=== PATIENT | female | born 1955 | race Caucasian/White ===

== ENCOUNTER 2020-03-11 09:33 | Outpatient (REF) | payer OTHER, SELFPAY | END 2020-03-11 09:34 | disposition home or self-care (01) | LOC: HO.HAP 09:33 | PROVIDERS: Visit Provider Internal Medicine | DX: Z46.1 Encounter for fitting and adjustment of hearing aid (principal) | CPT/HCPCS: 92700; V5011; V5020; V5160; V5261 ==

== ENCOUNTER 2020-03-25 14:54 | Outpatient (REF) | payer OTHER, SELFPAY | END 2020-03-25 14:55 | disposition home or self-care (01) | LOC: HO.HAP 14:54 | PROVIDERS: PCP Internal Medicine; Referring Provider Internal Medicine; Visit Provider Internal Medicine | DX: Z13.89 Encounter for screening for other disorder (principal) | CPT/HCPCS: 92700 ==

== ENCOUNTER 2020-06-29 15:48 | Outpatient (REF) | payer OTHER, SELFPAY ==
--- NOTE | ~2020-06-29 | XR_ITS ---
EXAMINATION: XR CHEST CLINICAL INFORMATION: Cough COMPARISON: None TECHNIQUE: 2 views of the chest were obtained. FINDINGS: The cardiac and mediastinal contours are normal. The lungs are well inflated. The lungs are clear. There is no pleural effusion or pneumothorax. Bony structures are unremarkable. XR/XR chest 2V IMPRESSION: Well-inflated lungs. No evidence for acute disease in the chest.
== END 2020-06-29 15:49 | disposition home or self-care (01) ==
LOC: HO.XRAY 15:48
PROVIDERS: PCP Internal Medicine; Visit Provider Internal Medicine Medical Oncology
DX: J41.0 Simple chronic bronchitis (principal); F17.200 Nicotine dependence, unspecified, uncomplicated
CPT/HCPCS: 71046

== ENCOUNTER 2020-07-30 11:09 | Outpatient (REF) | payer OTHER, SELFPAY ==
--- NOTE | ~2020-07-30 | XR_ITS ---
EXAMINATION: XR LUMBOSACRAL SPINE CLINICAL INFORMATION: Unspecified injury lower back. Pain COMPARISON: MR pelvis 08/12/2019 TECHNIQUE: Three views of the lumbosacral spine. FINDINGS: There is normal lumbar segmentation with 5 nonrib-bearing lumbar vertebrae of normal height and normal lumbar lordosis. There is no lumbar vertebral compression or fracture or disc narrowing. No destructive process. The SI joints and visualized sacrum are unremarkable. XR/XR lumbar spine 2-3V IMPRESSION: Unremarkable examination.
== END 2020-07-30 11:10 | disposition home or self-care (01) ==
LOC: HO.HMGCX 11:09
PROVIDERS: PCP Internal Medicine; Visit Provider Nurse Practitioner Family
DX: S39.92XA Unspecified injury of lower back, initial encounter (principal); X58.XXXA Exposure to other specified factors, initial encounter; Y93.9 Activity, unspecified; Y92.9 Unspecified place or not applicable; Y99.8 Other external cause status
CPT/HCPCS: 72100

== ENCOUNTER 2020-08-04 09:21 | Outpatient (REF) | payer OTHER, SELFPAY ==
--- NOTE | ~2020-08-04 | US_ITS ---
EXAMINATION: US ABDOMEN COMPLETE CLINICAL INFORMATION: Hepatitis C. COMPARISON: Ultrasound abdomen 02/18/2019. CT abdomen and pelvis 08/10/2007. TECHNIQUE: Real-time imaging of the abdominal viscera. FINDINGS: PANCREAS: Normal. ABDOMINAL AORTA: There is evidence of atherosclerotic disease. The abdominal aorta is normal in caliber. INFERIOR VENA CAVA: Visualized portions are normal. LIVER: The liver is normal in size. The liver contour is normal. Liver echotexture may be slightly increased. No focal hepatic lesion. There is no intrahepatic biliary duct dilatation seen. GALLBLADDER: Normal. The gallbladder is physiologically distended without evidence of stones, sludge, polyps, wall thickening or pericholecystic fluid. COMMON BILE DUCT: Normal in caliber measuring 0.5 cm in diameter. RIGHT KIDNEY: Normal. No hydronephrosis. No renal calculi or focal parenchymal lesions. The kidney measures 10.2 cm in maximum dimension. LEFT KIDNEY: Normal. No hydronephrosis. No renal calculi or focal parenchymal lesions. The kidney measures 10.4 cm in maximum dimension. SPLEEN: Normal. The spleen measures 9.5 cm in maximum dimension. FREE FLUID: None. US/US abdomen complete IMPRESSION: Atherosclerotic disease. Slightly echogenic liver. No focal liver lesion or evidence of cirrhosis seen.
== END 2020-08-04 09:22 | disposition home or self-care (01) ==
LOC: HO.US 09:21
PROVIDERS: Visit Provider Internal Medicine Medical Oncology
DX: B19.20 Unspecified viral hepatitis C without hepatic coma (principal)
CPT/HCPCS: 76700

== ENCOUNTER 2020-08-07 08:19 | Outpatient (REF) | payer OTHER, SELFPAY ==
--- NOTE | ~2020-08-07 | FL_ITS ---
EXAMINATION: XR GI SERIES CLINICAL INFORMATION: Dysphagia. COMPARISON: None TECHNIQUE: Routine upper GI air-contrast study was performed. FINDINGS: Following oral administration of thick barium and effervescent granules, there is normal propagation bolus from the oral cavity through the pharynx, esophagus into stomach without any evidence of obstruction, narrowing or stricture. There is no pharyngeal obstruction, laryngeal penetration or aspiration seen. There is no retention of barium. There is no mucosal abnormality in the oropharyngeal soft tissues. On placing the patient lying supine and prone, the course, caliber and peristalsis of stomach and the duodenal bulb is normal. No gastroesophageal reflux or hiatal hernia seen. FLUOROSCOPY TIME: 2.5 minutes DOSE AREA PRODUCT: 14.583 uGy-m2 (microgray-meter squared) FL/FL upper GI series IMPRESSION: Unremarkable upper GI air contrast study.
== END 2020-08-07 08:20 | disposition home or self-care (01) ==
LOC: HO.XRAY 08:19
PROVIDERS: Visit Provider Internal Medicine Gastroenterology
DX: R47.02 Dysphasia (principal)
CPT/HCPCS: 74240

== ENCOUNTER 2020-08-07 09:18 | Outpatient (REF) | payer OTHER, SELFPAY | END 2020-08-07 09:19 | disposition home or self-care (01) | LOC: HO.HAP 09:18 | PROVIDERS: Visit Provider Internal Medicine | DX: Z13.89 Encounter for screening for other disorder (principal) ==

== ENCOUNTER 2020-08-10 13:54 | Outpatient (REF) | payer OTHER, SELFPAY | END 2020-08-10 13:55 | disposition home or self-care (01) | LOC: HO.HAP 13:54 | PROVIDERS: Visit Provider Internal Medicine | DX: Z13.89 Encounter for screening for other disorder (principal) ==

== ENCOUNTER 2020-08-13 10:52 | Outpatient (REF) | payer OTHER, SELFPAY | END 2020-08-13 10:53 | disposition home or self-care (01) | LOC: HO.HAP 10:52 | PROVIDERS: Visit Provider Internal Medicine | DX: Z13.89 Encounter for screening for other disorder (principal) ==

== ENCOUNTER 2020-09-25 12:00 | Outpatient (REF) | payer OTHER, SELFPAY ==
--- NOTE | ~2020-09-25 | XR_ITS ---
EXAMINATION: XR CERVICAL SPINE AND BILATERAL HANDS CLINICAL INFORMATION: Bilateral hand pain and neck pain. COMPARISON: None. TECHNIQUE: 3 views each hand. Cervical spine 3 views. FINDINGS: Cervical Spine: There is normal cervical lordosis. There is loss of C4-C5 and C5-C6 disc heights with mild spondylosis at C4-C5 and C5-C6 levels. No visible acute fracture or dislocation seen. No lytic process. There is mild right C5-C6 and C4-C5 facet joint arthropathy. No lytic process. Right Hand: There is no visible fracture or dislocation. The PIP, DIP and MCP joint space is maintained normal. The soft tissues are normal. Left Hand: There is loss of 1st MCP joint space with periarticular spurring. No visible acute fracture or dislocation seen. The PIP, DIP and MCP joint space is normal. XR/XR hand RT 2V IMPRESSION: Mild degenerative disc changes C4-5 and C5-C6 level without acute fracture or dislocation. Mild degenerative changes 1st MCP joint left hand. There is no visible acute fracture or dislocation of either hand.
--- NOTE | ~2020-09-25 | XR_ITS ---
EXAMINATION: XR CERVICAL SPINE AND BILATERAL HANDS CLINICAL INFORMATION: Bilateral hand pain and neck pain. COMPARISON: None. TECHNIQUE: 3 views each hand. Cervical spine 3 views. FINDINGS: Cervical Spine: There is normal cervical lordosis. There is loss of C4-C5 and C5-C6 disc heights with mild spondylosis at C4-C5 and C5-C6 levels. No visible acute fracture or dislocation seen. No lytic process. There is mild right C5-C6 and C4-C5 facet joint arthropathy. No lytic process. Right Hand: There is no visible fracture or dislocation. The PIP, DIP and MCP joint space is maintained normal. The soft tissues are normal. Left Hand: There is loss of 1st MCP joint space with periarticular spurring. No visible acute fracture or dislocation seen. The PIP, DIP and MCP joint space is normal. XR/XR hand LT 2V IMPRESSION: Mild degenerative disc changes C4-5 and C5-C6 level without acute fracture or dislocation. Mild degenerative changes 1st MCP joint left hand. There is no visible acute fracture or dislocation of either hand.
--- NOTE | ~2020-09-25 | XR_ITS ---
EXAMINATION: XR CERVICAL SPINE AND BILATERAL HANDS CLINICAL INFORMATION: Bilateral hand pain and neck pain. COMPARISON: None. TECHNIQUE: 3 views each hand. Cervical spine 3 views. FINDINGS: Cervical Spine: There is normal cervical lordosis. There is loss of C4-C5 and C5-C6 disc heights with mild spondylosis at C4-C5 and C5-C6 levels. No visible acute fracture or dislocation seen. No lytic process. There is mild right C5-C6 and C4-C5 facet joint arthropathy. No lytic process. Right Hand: There is no visible fracture or dislocation. The PIP, DIP and MCP joint space is maintained normal. The soft tissues are normal. Left Hand: There is loss of 1st MCP joint space with periarticular spurring. No visible acute fracture or dislocation seen. The PIP, DIP and MCP joint space is normal. XR/XR cervical spine 3V IMPRESSION: Mild degenerative disc changes C4-5 and C5-C6 level without acute fracture or dislocation. Mild degenerative changes 1st MCP joint left hand. There is no visible acute fracture or dislocation of either hand.
== END 2020-09-25 12:01 | disposition home or self-care (01) ==
LOC: HO.XRAY 12:00
PROVIDERS: PCP Internal Medicine; Visit Provider Internal Medicine
DX: M79.642 Pain in left hand (principal); M79.641 Pain in right hand; M54.2 Cervicalgia
CPT/HCPCS: 72040; 73120

== ENCOUNTER 2021-04-12 13:05 | Outpatient (REF) | payer OTHER, SELFPAY ==
--- NOTE | ~2021-04-12 | MM_ITS ---
EXAMINATION: MM SCREENING DIGITAL BREAST TOMOSYNTHESIS, BILATERAL CLINICAL INFORMATION: Screening. Asymptomatic. The lifetime risk of breast cancer based on the Tyrer-Cuzick Model is 4%. COMPARISON: Mammography: 02/13/2019, 11/01/2017, 10/31/2016 TECHNIQUE: Digital breast tomosynthesis is performed in both the craniocaudal and mediolateral oblique views along with computer-aided detection (CAD). Synthesized 2D images are generated from the tomosynthesis. FINDINGS: There are scattered areas of fibroglandular density (ACR BI-RADS breast composition Category b). There are no significant masses, abnormal calcifications, or other abnormalities. Breast tissue composition borders on heterogeneously dense. There is no developing density. No significant changes. The axilla and skin contours are unremarkable. MM/MM tomosynthesis screening BI IMPRESSION: No mammographic evidence of malignancy. ASSESSMENT: BI-RADS 1: Negative RECOMMENDATION: Routine annual mammography screening. This patient's information was entered into a reminder system with a target due date for their next mammogram.
== END 2021-04-12 13:06 | disposition home or self-care (01) ==
LOC: HO.MAMMO 13:05
PROVIDERS: PCP Internal Medicine; Visit Provider Internal Medicine
DX: Z12.31 Encounter for screening mammogram for malignant neoplasm of breast (principal)
CPT/HCPCS: 77063; 77067

== ENCOUNTER 2021-12-01 09:14 | Outpatient (REF) | payer MEDICARE, SELFPAY ==
[2021-12-01 09:27] LABS: MANUAL DIFF FLAG NO
[2021-12-01 09:40] LABS: Basophils Percent Auto 0.3 % (0-2); Eosinophils Absolute Auto 0.1 X10*3/uL (0.0-0.4); Eosinophils Percent Auto 1.4 % (0-4); Hematocrit 40.6 % (37.0-47.0); Hemoglobin 13.8 g/dl (12.0-16.0); Imm Gran Abs Auto 0.01 X10*3/uL (0.00-0.03); Imm Gran Pct Auto 0.2 % (0.0-0.4); Lymphocytes Absolute Auto 2.7 X10*3/uL (1.2-4.9); Mean Corpuscular Hemoglobin 31.7 pg (27.0-33.0); Mean Corpuscular Volume 93.1 fL (80.0-98.0); Mean Platelet Volume 11.9 fL (9.4-12.3); Monocytes Absolute Auto 0.5 X10*3/uL (0.1-1.2); Monocytes Percent Auto 8.9 % (2-11); Neutrophils Absolute Auto 2.4 x10*3/uL (2.0-8.3); Neutrophils Percent Auto 42.2 % (45-73); Platelet Count 177 X10*3/uL (160-400); Red Blood Count 4.36 X10*6/uL (4.20-5.50); Red Cell Distribution Width 13.7 % (11.0-16.0); White Blood Count 5.8 X10*3/uL (4.8-10.8)
[2021-12-01 10:18] LABS: Alanine Aminotransferase 9 U/L (0-31); Albumin Level 4.7 g/dL (3.5-5.0); Alkaline Phosphatase 76 U/L (39-117); Anion Gap 12 (12-20); Aspartate Amino Transferase 13 U/L (5-31); Bilirubin Total 0.7 mg/dL (0.0-1.0); Blood Urea Nitrogen 14 mg/dL (9-16); Calcium 9.9 mg/dL (8.4-10.2); Carbon Dioxide 26 mmol/L (22-29); Chloride 109 mmol/L (96-108); Cholesterol 183 mg/dL; Estimated Glomerular Filt Rate 58; Glucose Fasting 100 mg/dL (60-99); HDL Cholesterol 55 mg/dL; LDL Cholesterol Calculated 103 mg/dl; Potassium 4.3 mmol/L (3.3-5.1); Sodium 143 mmol/L (135-145); Total Protein 7.3 g/dL (6.5-8.0); Triglycerides 125 mg/dL
[2021-12-01 10:39] LABS: Thyroid Stimulating Hormone 0.75 uIU/mL (0.32-4.0)
== END 2021-12-01 09:15 | disposition home or self-care (01) ==
LOC: HO.LAB 09:14
PROVIDERS: PCP Internal Medicine; Visit Provider Internal Medicine
DX: Z13.0 Encounter for screening for diseases of the blood and blood-forming organs and certain disorders involving the immune mechanism (principal); E03.9 Hypothyroidism, unspecified; I10 Essential (primary) hypertension; E78.5 Hyperlipidemia, unspecified
CPT/HCPCS: 36415; 80053; 80061; 84443; 85025

== ENCOUNTER 2022-04-13 13:43 | Outpatient (REF) | payer MEDICARE, SELFPAY ==
--- NOTE | ~2022-04-13 | MM_ITS ---
EXAMINATION: MM SCREENING DIGITAL BREAST TOMOSYNTHESIS, BILATERAL CLINICAL INFORMATION: Screening. Asymptomatic. The lifetime risk of breast cancer based on the Tyrer-Cuzick Model is 4%. COMPARISON: Mammography: 04/12/2021, 02/13/2019, 11/01/2017 TECHNIQUE: Digital breast tomosynthesis is performed in both the craniocaudal and mediolateral oblique views along with computer-aided detection (CAD). Synthesized 2D images are generated from the tomosynthesis. Additional left exaggerated CC view is provided. FINDINGS: There are scattered areas of fibroglandular density (ACR BI-RADS breast composition Category b). There are no significant masses, abnormal calcifications, or other abnormalities. Parenchymal pattern is similar to prior studies. There is no developing density or architectural abnormality. The axilla and skin contours are unremarkable. No significant changes. MM/MM tomosynthesis screening BI IMPRESSION: No mammographic evidence of malignancy. ASSESSMENT: BI-RADS 1: Negative RECOMMENDATION: Routine annual mammography screening. This patient's information was entered into a reminder system with a target due date for their next mammogram.
== END 2022-04-13 13:44 | disposition home or self-care (01) ==
LOC: HO.MAMMO 13:43
PROVIDERS: Visit Provider Internal Medicine
DX: Z12.31 Encounter for screening mammogram for malignant neoplasm of breast (principal)
CPT/HCPCS: 77063; 77067

== ENCOUNTER 2022-05-04 13:55 | Outpatient (REF) | payer OTHER, SELFPAY ==
--- NOTE | ~2022-05-04 | XR_ITS ---
EXAMINATION: XR SHOULDER, RIGHT CLINICAL INFORMATION: Pain COMPARISON: None TECHNIQUE: AP external rotation, Grashey, scapular Y, and axillary views of the right shoulder. FINDINGS: The bones and soft tissues are normal. No fracture. Glenohumeral and acromioclavicular alignment is anatomic with normal joint space. No abnormal soft tissue calcifications. XR/XR shoulder RT min 2V IMPRESSION: Normal right shoulder.
== END 2022-05-04 13:56 | disposition home or self-care (01) ==
LOC: HO.XRAY 13:55
PROVIDERS: PCP Internal Medicine; Visit Provider Internal Medicine
DX: M25.511 Pain in right shoulder (principal)
CPT/HCPCS: 73030

== ENCOUNTER → 2022-06-06 13:41 | Outpatient (BNVA) | payer OTHER, SELFPAY | PROVIDERS: Visit Provider Orthopaedic Surgery | DX: M25.511 Pain in right shoulder (principal); M75.51 Bursitis of right shoulder | CPT/HCPCS: 99202 ==

== ENCOUNTER 2023-04-18 13:38 | Outpatient (REF) | payer OTHER, SELFPAY | END 2023-04-18 13:39 | disposition home or self-care (01) | LOC: HO.MAMMO 13:38 | PROVIDERS: PCP Internal Medicine; Visit Provider Internal Medicine | DX: Z12.31 Encounter for screening mammogram for malignant neoplasm of breast (principal) | CPT/HCPCS: 77063; 77067 ==

== ENCOUNTER → 2023-04-18 13:45 | Outpatient (BNV) | payer OTHER, SELFPAY | PROVIDERS: PCP Internal Medicine; Visit Provider Radiology Diagnostic Radiology | DX: Z12.31 Encounter for screening mammogram for malignant neoplasm of breast (principal) | CPT/HCPCS: 77063; 77067 ==

== ENCOUNTER 2023-05-05 13:30 | Outpatient (AMB) | payer OTHER, SELFPAY ==
[2023-05-05 13:31] VITALS: BP 146/78; PULSE 70; O2SAT 98; BMI 22.5
--- NOTE | 2023-05-05 13:31 | A.OFFPC_ITS ---
Vital Signs 05/05/23 13:31 Height 5 ft 1 in Weight 119 lb BMI 22.5 BP 146/78 H Blood Pressure Location Lt brachial Position Sitting Pulse 70 Pulse Source Pulse Oximeter Pulse Oximetry (%) 98 Oxygen Delivery Method Room Air Intake Visit Reasons: Annual PE Insurance Professional Required: No Credit Card Specialist: Not Required per policy Accompanied by: Self / Same As Patient Allergies Penicillins Allergy (Mild, Verified 05/05/23 13:31) N/V Medication List - Last Reconciled 05/05/23 by Osmany Booth MD cholecalciferol (vitamin D3) (Vitamin D3) 25 mcg PO DAILY melatonin 3 mg PO BEDTIME polyethylene glycol 3350 (Miralax) 17 grams PO DAILY sertraline 50 mg PO DAILY trazodone 100 mg PO BEDTIME PRN Tobacco use date assessed: 06/08/22 Fall risk assessment: No Falls in past year Last assessed Fall Risk: 05/05/23 Dental Screening Dental Screen Date: 05/05/23 Did you have a dental visit in the last 12 months?: Yes Did you have a dental problem in the last 6 months where you did not have access to dental care?: No Was dental information given to patient?: Patient has dentist HPI Annual PE HPI Details Depression on rx; doing well PFSH Medical History Insomnia Anxiety Depression Surgical History History of tonsillectomy History of shoulder surgery Family History Father Medical history unknown Mother Medical history unknown Mother Dementia Diabetes Social History Housing: House Alcohol intake: former Patient Tobacco Use Status: Current everyday Tobacco user Tobacco use type: Cigarette Cigarettes Per Day: 20 e-Cigarette/Vaping Use: Never Used Second Hand Smoke Exposure: No service: No Current occupational status: disabled Cognitive needs: No Hearing needs: No Vision needs: No Questionnaire Thrive Questionnaire Date Thrive assessed: 06/08/22 ROSS-7 AMB Questionnaire ROSS-7 Date ROSS - 7 assessed: 06/08/22 Source: Developed by Drs. Hay Monae, Marilin Alfaro, Dean Strickland and colleagues, with an educational melonie from [employer]. Review of Systems Const Denies chills, Denies fatigue, Denies headache(s) and Denies weight loss Eyes Denies change in vision, Denies diplopia and Denies eye pain ENT Denies vertigo, Denies dizziness, Denies headache(s) and Denies nasal discharge Card Denies chest pain, Denies rapid heart rate and Denies dyspnea on exertion Resp Denies chest congestion, Denies cough, Denies pain with cough and Denies dyspnea on exertion GI Denies abdominal pain, Denies hematochezia and Denies change in bowel habits Musc Denies myalgias, Denies arthralgias and Denies joint swelling Skin/Breast Denies lesions and Denies unusual bruising Neuro Denies vertigo, Denies dizziness, Denies headache(s) and Denies focal weakness Endo Denies fatigue Physical exam (Primary Care) Vital Signs: Last Vital Signs Pulse 70 05/05/23 13:31 BP 146/78 H 05/05/23 13:31 Pulse Ox 98 05/05/23 13:31 Oxygen Delivery Method Room Air 05/05/23 13:31 BMI result Body Mass Index 22.5 Tobacco/Smoking Status: Tobacco use Status Tobacco use date assessed 06/08/22 05/05/23 13:32 Patient Tobacco Use Status Current everyday Tobacco 05/05/23 13:32 Tobacco use type Cigarette 05/05/23 13:32 e-Cigarette/Vaping Use Never Used 05/05/23 13:32 Thrive Assessment: Date of Thrive Assessment Date Thrive assessed 06/08/22 05/05/23 13:32 Advance Care Planning discussion: On file, no changes Forms completed: Health Care Proxy Const General: cooperative, healthy appearing and no acute distress Orientation/consciousness: oriented to person, oriented to place and oriented to time HENMD Head: Yes normal to inspection, Yes normocephalic and Yes atraumatic Mouth: Normal oral and palatal mucosa present and tongue normal Throat: Yes posterior oropharynx normal and Yes uvula midline Eyes General: appearance normal, both eyes and all related structures Neck Neck: Yes normal visual inspection, Yes full ROM and Yes no lymphadenopathy Thyroid: Thyroid normal Carotids: normal carotid upstroke Chest Chest palpation & inspection: normal inspection of the chest Resp Effort & Inspection: normal respiratory effort and able to speak in complete sentences Auscultation: clear to auscultation bilaterally Cardio Jugular venous distension: no JVD Palpation: normal PMI Rate: regular rate Rhythm: regular rhythm Heart sounds: S1 normal heart sound present and S2 normal heart sound present GI Inspection: Yes normal to inspection Palpation (GI): Soft to palpation and No hepatosplenomegaly present Auscultation: normal bowel sounds General: Yes no CVA tenderness Back/Spine/Pelvis Back: no CVA tenderness Skin General skin exam: no rashes or lesions noted Neuro General: oriented to person, oriented to place and oriented to time Extrem General: Yes normal to inspection and Yes full ROM Assessment and Plan Assessment & Plan (1) Physical exam: Code(s): Z00.00 - Encounter for general adult medical examination without abnormal findings Plan: stable; do labs (2) Depression: Code(s): F32.9 - Major depressive disorder, single episode, unspecified Plan: stable; same rx Orders: Orders Lipid Panel Today E78.5 - Hyperlipidemia, unspecified Thyroid Stimulating Hormone Today E03.9 - Hypothyroidism, unspecified Complete Blood Count Auto Diff Today D64.9 - Anemia, unspecified Comprehensive [place]. Panel Fast Today N28.9 - Disorder of kidney and ureter, unspecified Coding Level of Care Code Est Pt Prev Care >65y(53992) Diagnoses Physical exam Z00.00 Depression F32.9 Additional Codes Vital Signs *Quality* - Advance Care Planning discussion: On file, no changes ([id number])
== END 2023-05-05 13:54 | disposition home or self-care (01) ==
PROVIDERS: PCP Internal Medicine; Visit Provider Internal Medicine
DX: Z00.00 Encounter for general adult medical examination without abnormal findings (principal); F32.9 Major depressive disorder, single episode, unspecified
CPT/HCPCS: 1123F; 99397

== ENCOUNTER 2023-05-11 08:01 | Outpatient (REF) | payer OTHER, SELFPAY ==
[2023-05-11 08:12] LABS: MANUAL DIFF FLAG NO
[2023-05-11 08:27] LABS: Basophils Percent Auto 0.3 % (0-2); Eosinophils Absolute Auto 0.1 X10*3/uL (0.0-0.4); Eosinophils Percent Auto 1.9 % (0-4); Hematocrit 40.9 % (37.0-47.0); Hemoglobin 13.8 g/dl (12.0-16.0); Imm Gran Abs Auto 0.02 X10*3/uL (0.00-0.03); Imm Gran Pct Auto 0.3 % (0.0-0.4); Lymphocytes Absolute Auto 2.6 X10*3/uL (1.2-4.9); Lymphocytes Percent Auto 40.9 % (20-40); Mean Corpuscular HGB Conc 33.7 g/dl (31.0-35.0); Mean Corpuscular Volume 94.9 fL (80.0-98.0); Mean Platelet Volume 12.1 fL (9.4-12.3); Monocytes Absolute Auto 0.6 X10*3/uL (0.1-1.2); Monocytes Percent Auto 8.7 % (2-11); Neutrophils Percent Auto 47.9 % (45-73); Platelet Count 170 X10*3/uL (160-400); Red Blood Count 4.31 X10*6/uL (4.20-5.50); Red Cell Distribution Width 13.8 % (11.0-16.0); White Blood Count 6.4 X10*3/uL (4.8-10.8)
[2023-05-11 08:57] LABS: Alanine Aminotransferase 8 U/L (0-31); Albumin Level 4.8 g/dL (3.5-5.0); Alkaline Phosphatase 66 U/L (39-117); Anion Gap 13 (12-20); Aspartate Amino Transferase 16 U/L (5-31); Bilirubin Total 0.9 mg/dL (0.0-1.0); Blood Urea Nitrogen 24 mg/dL (9-16); Calcium 10.4 mg/dL (8.4-10.2); Carbon Dioxide 29 mmol/L (22-29); Chloride 106 mmol/L (96-108); Cholesterol 212 mg/dL (<200); Estimated Glomerular Filt Rate 52; Glucose Fasting 91 mg/dL (60-99); HDL Cholesterol 70 mg/dL (>40); LDL Cholesterol Calculated 119 mg/dL (<100); Sodium 144 mmol/L (135-145); Total Protein 8.1 g/dL (6.5-8.0); Triglycerides 119 mg/dL (<150)
[2023-05-11 09:11] LABS: Thyroid Stimulating Hormone 2.05 uIU/mL (0.32-4.0)
== END 2023-05-11 08:02 | disposition home or self-care (01) ==
LOC: HO.LAB 08:01
PROVIDERS: PCP Internal Medicine; Visit Provider Internal Medicine
DX: E03.9 Hypothyroidism, unspecified (principal); D64.9 Anemia, unspecified; E78.5 Hyperlipidemia, unspecified; N28.9 Disorder of kidney and ureter, unspecified
CPT/HCPCS: 36415; 80053; 80061; 84443; 85025

== ENCOUNTER 2023-08-17 08:46 | Outpatient (AMB) | payer OTHER, SELFPAY ==
[2023-08-17 08:52] VITALS: BP 138/72; PULSE 84; O2SAT 97; BMI 23.1
--- NOTE | 2023-08-17 08:52 | A.OFFPC_ITS ---
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 Intake Note: Pt is here to est care from Dr Booth Allergies Penicillins Allergy (Mild, Verified 08/17/23 09:02) N/V Medication List - Last Reconciled 08/17/23 by SARAH Daigle cholecalciferol (vitamin D3) (Vitamin D3) 25 mcg PO DAILY melatonin 3 mg PO BEDTIME polyethylene glycol 3350 (Miralax) 17 grams PO DAILY sertraline 50 mg PO DAILY trazodone 100 mg PO BEDTIME PRN Tobacco use date assessed: 08/17/23 Fall risk assessment: No Falls in past year Last assessed Fall Risk: 08/17/23 Dental Screening Dental Screen Date: 08/17/23 Did you have a dental visit in the last 12 months?: Yes Did you have a dental problem in the last 6 months where you did not have access to dental care?: No Was dental information given to patient?: Patient has dentist HPI HPI Comments History of Present Illness Details Patient is a 67-year-old female who I am meeting for the 1st time. She has a past medical history significant for depression, pancytopenia, low back pain. Patient's most recent mammogram 04/13. Patient is due for bone density scan, will refer. Patient is due for Prevnar 20 immunization, will give in office today. Patient has significant pack history 49 years, will refer to thoracic surgery for lung cancer screen. Patient does not have establish care with gynecology, will refer. Patient sees Psychiatry for depression and insomnia which is under control. Patient has a chief complaint of intermittent chest tightness and dyspnea on exertion. Patient also states that about once per month she will wake up feeling like she needs to gasp for air. Patient is not currently taking any pulmonary medications. Denies chest pain, dizziness, shortness of breath, numbness, nausea, vomiting. [facility] Medical History Insomnia Anxiety Depression Surgical History History of tonsillectomy History of shoulder surgery Family History Father Medical history unknown Mother Medical history unknown Mother Dementia Diabetes Social History Housing: House Alcohol intake: former Patient Tobacco Use Status: Current everyday Tobacco user Tobacco use type: Cigarette Cigarette Packs Per Day: 1 Cigarettes Per Day: 20 e-Cigarette/Vaping Use: Never Used Second Hand Smoke Exposure: No service: No Current occupational status: disabled Cognitive needs: No Hearing needs: Yes Vision needs: No Questionnaire PHQ-9 Over the last 2 weeks, how often have you been bothered by any of the following problems? 1. Little interest or pleasure in doing things: not at all 2. Feeling down, depressed, or hopeless: several days 3. Trouble falling or staying asleep, or sleeping too much: several days 4. Feeling tired or having little energy: not at all 5. Poor appetite or overeating: not at all 6. Feeling bad about yourself - or that you are a failure or have let yourself or your family down: not at all 7. Trouble concentrating on things, such as reading the newspaper or watching television: not at all 8. Moving or speaking so slowly that other people could have noticed. Or the opposite - being so fidgety or restless that you have been moving around a lot more than usual: not at all 9. Thoughts that you would be better off or of hurting yourself in some way: not at all Total score: 2 Depression Screening Interpretation: Negative Depression Screening Done: Yes 12873 - PHQ-9 Billing: Yes Source: Developed by Drs. Hay Monae, Marilin Alfaro, Dean Strickland and colleagues, with an educational melonie from [employer]. Thrive Questionnaire Date Thrive assessed: 08/17/23 I am a: Patient What is your living situation today?: I have a steady place to live Within the past 12 months, did the food you bought not last and you didn't have the money to get more?: Sometimes True Within the past 12 months, did you worry whether your food would run out before you got money to buy more?: Sometimes True Do you have trouble paying for medicines?: No Do you have trouble getting transportation to medical appointments?: No Do you have trouble paying your heating and electricity bill?: No Do you have trouble taking care of your child, family member or friend?: No Do you have trouble with day-to-day activities such as bathing, preparing meals, shopping, managing finances, etc.?: No Are you currently unemployed and looking for a job?: No Are you interested in more education?: No Please select the resources that you would like help with: Utilities THRIVE Score: 2 AUDIT C Alcohol Use Questionnaire (AUDIT-C) 1. How often do you have a drink containing alcohol?: Never Total Score: 0 ROSS-7 AMB Questionnaire ROSS-7 Date ROSS - 7 assessed: 08/17/23 Feeling nervous, anxious, or on edge: 1 = Several days Not being able to stop or control worryin = Several days Worrying too much about different things: 2 = More than half the days Trouble relaxin = Not at all Being so restless that it is hard to sit still: 0 = Not at all Becoming easily annoyed or irritable: 1 = Several days Feeling afraid as if something awful might happen: 0 = Not at all Total ROSS-7 score (0-4 normal; 5-9 mild; 10-14 moderate; 15-21 severe): 5 Source: Developed by Drs. Hay Monae, Marilin Alfaro, Dean Strickland and colleagues, with an educational melonie from [employer]. ROSS-7 Assessment Billing ROSS-7 Assessment Tool: ROSS-7 Assessment 39838 Review of Systems Const All systems reviewed & are unremarkable except as noted in HPI and below Reports excessive sweating (Both during the day and at night.) Endo Reports excessive sweating (Both during the day and at night.) Physical exam (Primary Care) Vital Signs: Last Vital Signs Pulse 84 08/17/23 08:52 BP 138/72 08/17/23 08:52 Pulse Ox 97 08/17/23 08:52 Oxygen Delivery Method Room Air 08/17/23 08:52 Care Plan Goal for BP management: Patient will monitor blood pressure at home BMI result Body Mass Index 23.1 Tobacco/Smoking Status: Tobacco use Status Tobacco use date assessed 08/17/23 08/17/23 08:59 Patient Tobacco Use Status Current everyday Tobacco 08/17/23 08:56 Tobacco use type Cigarette 08/17/23 08:56 e-Cigarette/Vaping Use Never Used 08/17/23 08:56 Depression Screening Interpretation: Negative Thrive Assessment: Date of Thrive Assessment Date Thrive assessed 06/08/22 08/17/23 08:56 Const General: cooperative and no acute distress Orientation/consciousness: patient oriented x3 Limitations: no limitations Neck Neck: Yes normal visual inspection, Yes full ROM and Yes no lymphadenopathy Thyroid: Thyroid normal Carotids: normal carotid upstroke Resp Effort & Inspection: normal respiratory effort and able to speak in complete sentences Auscultation: wheezes (Bilateral wheeze upper lobes) Cardio Rate: regular rate Rhythm: regular rhythm Heart sounds: S1 normal heart sound present and S2 normal heart sound present Neuro General: patient oriented x3 Psych Affect: normal affect Attitude: cooperative Thought process: Normal thought process present Thought content: Normal thought content present Insight: Good insight present (Psych) Judgement: Good judgement present (Psych) Immunizations pneumoc 20-misah conj-dip cr(PF) 0.5 mL IM syringe Performing Provider: SAARH Daigle Performing Location: [facility] [place] [facility] Administered by: Claire Cervantes CMA on 08/17/23 09:18 Dose Route Admin Location Dispensed Lot Number Expiration Date NDC Outreach Director 0.5 mL IM Left Deltoid 0.5 mL [id number] 08/18/24 2893-5902-37 [employer] VIS Given Date VIS Provided VIS Publication Date 08/17/23 Single Vaccine 21 Eligibility Eligibility Date Funding Source Not [facility] Eligible 08/17/23 Private Assessment and Plan Assessment & Plan (1) Depression: Comment: Patient currently seeing Psychiatry in taking sertraline with good effect. Code(s): F32.9 - Major depressive disorder, single episode, unspecified Qualifiers: Depression Type: unspecified Qualified Code(s): F32.A - Depression, u nspecified (2) Reactive airway disease: Comment: Will give patient albuterol inhaler and Symbicort. Patient has been educated on signs of worsening symptoms when to report back to the office or when to present to the ED Code(s): J45.909 - Unspecified asthma, uncomplicated Qualifiers: Asthma complication type: uncomplicated Asthma persistence: unspecified Asthma severity: unspecified severity Qualified Code(s): J45.909 - Unspecified asthma, uncomplicated Plan: Take your medications as prescribed. If you were prescribed antibiotics today, it is important that you take your medication to their entirety, do not skip any doses, do not finish them early. Follow-up with your primary care provider this week. Return to the emergency department with new or worsening symptoms. Such as fevers, chills, chest pain, shortness of breath, nausea, vomiting, dizziness, headache, vision changes, lethargy In case of emergency call 911 (3) Cigarette smoker: Comment: Patient has 45 year pack history. Will refer to thoracic surgery for lung cancer screening Code(s): F17.210 - Nicotine dependence, cigarettes, uncomplicated (4) Sweating increase: Comment: Patient's recent thyroid labs were normal, will redraw an 3 months. Will refer to Gynecology. Code(s): R61 - Generalized hyperhidrosis Plan: Patient will follow-up physical exam in 4 months Orders: Orders Comprehensive Met. Panel 3 Months Z91.89 - Other specified personal risk factors, not elsewhere classified Pneumococcal 20 Immunization Today Z23 - Encounter for immunization Complete Blood Count Auto Diff 3 Months Z13.0 - Encounter for screening for diseases of the blood and blood-forming organs and certain disorders involving the immune mechanism UA CC w/rflx Micro + Cult 3 Months Z13.89 - Encounter for screening for other disorder Lipid Panel 3 Months Z13.220 - Encounter for screening for lipoid disorders Medications: New albuterol sulfate 90 mcg/actuation 2 puffs inhalation Q6H PRN 6.7 grams 0RF shortness of breath or wheezing budesonide-formoterol 160-4.5 mcg/actuation (Symbicort) 2 puffs inhalation Q12H 10.2 grams 0RF Coding Level of Care Code Est Pt Level 4 (57250) Diagnoses Depression, unspecified depression type F32.A Depression Type: unspecified Reactive airway disease without complication, unspecified asthma severity, unspecified whether persistent J45.909 Asthma complication type: uncomplicated Asthma persistence: unspecified Asthma severity: unspecified severity Cigarette smoker F17.210 Sweating increase R61 Additional Codes ROSS-7 Assessment Billing - ROSS-7 Assessment Tool: ROSS-7 Assessment 22428 ([id number]) Time Spent (min) 31
== END 2023-08-17 09:28 | disposition home or self-care (01) ==
PROVIDERS: PCP Internal Medicine; Visit Provider Nurse Practitioner Primary Care
DX: Z23 Encounter for immunization (principal)
CPT/HCPCS: 90471; 90677; 99214

== ENCOUNTER 2023-09-14 08:48 | Outpatient (REF) | payer OTHER, SELFPAY ==
--- NOTE | ~2023-09-14 | MM_ITS ---
EXAMINATION: BONE DENSITOMETRY CLINICAL INDICATION: Menopause. COMPARISON: This is the patient's baseline examination. TECHNIQUE: Using a adjust DXA System (software version: 13.1) manufactured by [employer] ([employer]), dual-energy x-ray absorptiometry was performed of the lumbar spine and left hip. The images are of good technical quality. Summary results are attached. FINDINGS: LEFT FEMUR, NECK: BMD 0.706 g/cm2, Z-score -0.6, T-score -2.4, osteopenia. LEFT FEMUR, TOTAL: BMD 0.755 g/cm2, Z-score -0.5, T-score -2.0, osteopenia. AP SPINE L1-L4: BMD 0.848 g/cm2, Z-score -0.8, T-score -2.8, osteoporosis. IDENTIFIED RISK FACTORS: Early menopause, secondary osteoporosis, tobacco use (current smoker). HISTORY OF FRACTURE: None listed. MEDICATIONS: Vitamin D. MM/XR DEXA axial skeleton IMPRESSION: 1. DIAGNOSIS: Osteoporosis based on the lowest T-score value of -2.8 in the lumbar spine applying World Health Organization criteria. 2. 10-YEAR FRACTURE RISK PREDICTION, FRAX: According to the guidelines, FRAX calculation should only be performed on patients in the osteopenia bone density category. Therefore, FRAX was not performed on this patient. 3. Treatment Recommendations: NOF guidelines recommend consideration for treatment in postmenopausal women and men age 50 and older presenting with the following: -A hip or vertebral (clinical or morphometric) fracture. -T-score less than or equal to -2.5 at the femoral neck or spine after appropriate evaluation to exclude secondary causes. -Low bone mass at the hip or spine and a 10-year fracture probability by FRAX of greater than or equal to 3% for hip fracture or greater than or equal to 20% for major osteoporotic fracture based on the [place] adapted WHO algorithm. 4. Other Recommendations: All treatment decisions require clinical judgment and consideration of individual patient factors, including patient preferences, comorbidities, previous drug use, risk factors not captured in the FRAX model (e.g. frailty, falls, vitamin D deficiency, increased bone turnover, interval significant decline in bone density) and possible under or overestimation of fracture risk by FRAX. Additional medical evaluation for secondary cause of low bone mineral density may be appropriate. FUTURE SCAN RECOMMENDATION: People with diagnosed cases of osteoporosis or at high risk for fracture should have regular bone mineral density tests. For patients eligible for Medicare, routine testing is allowed once every 2 years. The testing frequency can be increased to one year for patients who have rapidly progressing disease, those who are receiving or discontinuing medical therapy to restore bone mass, or have additional risk factors.
== END 2023-09-14 08:49 | disposition home or self-care (01) ==
LOC: HO.MAMMO 08:48
PROVIDERS: PCP Nurse Practitioner Primary Care; Visit Provider Nurse Practitioner Primary Care
DX: Z13.820 Encounter for screening for osteoporosis (principal); Z78.0 Asymptomatic menopausal state
CPT/HCPCS: 77080

== ENCOUNTER 2023-09-20 12:47 | Outpatient (AMB) | payer OTHER, SELFPAY ==
--- NOTE | 2023-09-20 13:08 | MHC.PC.OV ---
Vital Signs 09/20/23 13:09 Height 5 ft 1 in Weight 122 lb BMI 23.0 BP 132/74 Blood Pressure Location Rt brachial Position Sitting Pulse 76 Pulse Source Pulse Oximeter Pulse Oximetry (%) 98 Oxygen Delivery Method Room Air Intake Visit Reasons: f/u bone density scan Intake Note: pt is here for bone density scan Allergies Penicillins Allergy (Mild, Verified 09/20/23 13:09) N/V Tobacco use date assessed: 08/17/23 Dental Screening Dental Screen Date: 08/17/23 HPI HPI Comments History of Present Illness Details Patient is a 68-year-old female in today for follow-up after bone density scan. Patient was found to have osteoporosis of the lumbar spine and osteopenia of the left femur. Patient's most recent blood draw demonstrated hypercalcemia, with no recent vitamin-D. Will draw PTH intact, vitamin-D, and ionized calcium levels. Will discussed with patient the importance of a diet high in calcium, and maintaining normal vitamin-D levels. She is currently taking an aadh-heu-sawepqy vitamin-D supplement of 1000 units per day. Also discussed with patient that depending on lab results it will likely be beneficial to start medication Alendronate. Patient has also been encouraged to increased weight-bearing exercises like walking and stair climbing. [facility] Medical History (Updated 09/20/23 @ 14:02 by SARAH Daigle) Insomnia Anxiety Depression Surgical History History of tonsillectomy History of shoulder surgery Family History Father Medical history unknown Mother Medical history unknown Mother Dementia Diabetes Social History Housing: House Alcohol intake: former Patient Tobacco Use Status: Current everyday Tobacco user Tobacco use type: Cigarette Cigarette Packs Per Day: 1 Cigarettes Per Day: 20 e-Cigarette/Vaping Use: Never Used Second Hand Smoke Exposure: No service: No Current occupational status: disabled Cognitive needs: No Hearing needs: Yes Vision needs: No Questionnaire Thrive Questionnaire Date Thrive assessed: 08/17/23 ROSS-7 AMB Questionnaire ROSS-7 Date ROSS - 7 assessed: 08/17/23 Source: Developed by Chet Daoet B.W. Dominic, Dean Strickland and colleagues, with an educational melonie from [employer]. Review of Systems Const All systems reviewed & are unremarkable except as noted in HPI and below Denies chills and Denies fever(s) Card Denies chest pain and Denies dyspnea Resp Denies dyspnea Musc Denies arthralgias and Denies tingling Neuro Denies tingling and Denies paresthesias Physical exam (Primary Care) Care Plan Goal for BP management: Blood pressure stable. Tobacco/Smoking Status: Tobacco use Status Tobacco use date assessed 08/17/23 09/19/23 10:16 Patient Tobacco Use Status Current everyday Tobacco 09/19/23 10:16 Tobacco use type Cigarette 09/19/23 10:16 e-Cigarette/Vaping Use Never Used 09/19/23 10:16 Thrive Assessment: Date of Thrive Assessment Date Thrive assessed 08/17/23 09/19/23 10:16 Const General: cooperative and no acute distress Orientation/consciousness: patient oriented x3 Limitations: no limitations HENMT Head: Yes normal to inspection and Yes normocephalic Eyes General: appearance normal, both eyes and all related structures Neck Neck: Yes normal visual inspection Resp Effort & Inspection: normal respiratory effort Auscultation: clear to auscultation bilaterally Cardio Rate: regular rate Rhythm: regular rhythm Heart sounds: S1 normal heart sound present and S2 normal heart sound present General: No no CVA tenderness Back/Spine/Pelvis Back: No no CVA tenderness Thoracic/Lumbar Spine: thoracic and lumbar spine normal to inspection, No thoracic spinal tenderness and No lumbar spinal tenderness Neuro General: patient oriented x3 Psych Insight: Good insight present (Psych) Judgement: Good judgement present (Psych) Results Reviewed Results Reviewed: [facility] [address] 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 COMPARISON: This is the patient's baseline examination. TECHNIQUE: Using a [employer] DXA System (software version: 13.1) manufactured by [employer], dual-energy x-ray absorptiometry was performed of the lumbar spine and left hip. The images are of good technical quality. Summary results are attached. FINDINGS: LEFT FEMUR, NECK: BMD 0.706 g/cm2, Z-score -0.6, T-score -2.4, osteopenia. LEFT FEMUR, TOTAL: BMD 0.755 g/cm2, Z-score -0.5, T-score -2.0, osteopenia. AP SPINE L1-L4: BMD 0.848 g/cm2, Z-score -0.8, T-score -2.8, osteoporosis. Assessment and Plan Assessment & Plan (1) Osteoporosis: Comment: Will draw PTH intact, ionized calcium, vitamin-D. Code(s): M81.0 - Age-related osteoporosis without current pathological fracture Qualifiers: Osteoporosis type: unspecified Presence of current pathological fracture: unspecified Qualified Code(s): M81.0 - Age-related osteoporosis without current pathological fracture Plan: Discussed with patient medication Alendronate. Also discussed the need to rule out parathyroid causes of osteoporosis. Plan Will start medication of if indicated after labs. Orders: Orders Parathyroid Hormone Intact Today E83.52 - Hypercalcemia Calcium, Ionized Today E83.52 - Hypercalcemia Vitamin D 25-OH (D2 and D3) Today M81.0 - Age-related osteoporosis without current pathological fracture Coding Level of Care Code Est Pt Level 3 (84687) Diagnoses Osteoporosis, unspecified osteoporosis type, unspecified pathological fracture presence M81.0 Osteoporosis type: unspecified Presence of current pathological fracture: unspecified Time Spent (min) 28
[2023-09-20 13:09] VITALS: BP 132/74; PULSE 76; O2SAT 98; BMI 23.0
== END 2023-09-20 14:11 | disposition home or self-care (01) ==
PROVIDERS: PCP Nurse Practitioner Primary Care; Visit Provider Nurse Practitioner Primary Care
DX: M81.0 Age-related osteoporosis without current pathological fracture (principal)
CPT/HCPCS: 99213

== ENCOUNTER 2023-09-26 07:08 | Outpatient (REF) | payer OTHER, SELFPAY ==
[2023-09-26 10:16] LABS: MANUAL DIFF FLAG NO
[2023-09-26 10:31] LABS: Basophils Percent Auto 0.4 % (0-2); Eosinophils Absolute Auto 0.1 X10*3/uL (0.0-0.4); Eosinophils Percent Auto 1.5 % (0-4); Hematocrit 40.6 % (37.0-47.0); Hemoglobin 13.6 g/dl (12.0-16.0); Imm Gran Abs Auto 0.02 X10*3/uL (0.00-0.03); Imm Gran Pct Auto 0.4 % (0.0-0.4); Lymphocytes Absolute Auto 2.2 X10*3/uL (1.2-4.9); Lymphocytes Percent Auto 41.8 % (20-40); Mean Corpuscular HGB Conc 33.5 g/dl (31.0-35.0); Mean Corpuscular Hemoglobin 32.2 pg (27.0-33.0); Mean Platelet Volume 12.9 fL (9.4-12.3); Monocytes Absolute Auto 0.4 X10*3/uL (0.1-1.2); Monocytes Percent Auto 8.3 % (2-11); Neutrophils Absolute Auto 2.5 x10*3/uL (2.0-8.3); Neutrophils Percent Auto 47.6 % (45-73); Platelet Count 194 X10*3/uL (160-400); Red Blood Count 4.23 X10*6/uL (4.20-5.50); White Blood Count 5.3 X10*3/uL (4.8-10.8)
[2023-09-26 11:12] LABS: Alanine Aminotransferase 11 U/L (0-31); Albumin Level 4.8 g/dL (3.5-5.0); Alkaline Phosphatase 73 U/L (39-117); Anion Gap 14 (12-20); Aspartate Amino Transferase 16 U/L (5-31); Bilirubin Total 0.6 mg/dL (0.0-1.0); Blood Urea Nitrogen 17 mg/dL (9-16); Calcium 10.7 mg/dL (8.4-10.2); Carbon Dioxide 27 mmol/L (22-29); Chloride 107 mmol/L (96-108); Cholesterol 209 mg/dL (<200); Estimated Glomerular Filt Rate 57; Glucose Random 98 mg/dL (60-115); HDL Cholesterol 69 mg/dL (>40); LDL Cholesterol Calculated 124 mg/dL (<100); Potassium 4.1 mmol/L (3.3-5.1); Sodium 144 mmol/L (135-145); Total Protein 8.1 g/dL (6.5-8.0); Triglycerides 82 mg/dL (<150)
[2023-09-26 11:52] LABS: Parathyroid Hormone Intact 40.8 pg/mL (8.7-77.1)
[2023-09-28 02:24] LABS: Calcium, Ionized 5.4 mg/dL (4.7-5.5)
[2023-09-30 17:33] LABS: Vitamin D 25-OH, D2 <4 ng/mL; Vitamin D 25-OH, D3 46 ng/mL; Vitamin D 25-OH, Total 46 ng/mL (30-100)
== END 2023-09-26 07:09 | disposition home or self-care (01) ==
LOC: HO.HMGCLDS 07:08
PROVIDERS: PCP Nurse Practitioner Primary Care; Visit Provider Nurse Practitioner Primary Care
DX: Z13.0 Encounter for screening for diseases of the blood and blood-forming organs and certain disorders involving the immune mechanism (principal); Z13.220 Encounter for screening for lipoid disorders; Z13.6 Encounter for screening for cardiovascular disorders; E83.52 Hypercalcemia; M81.0 Age-related osteoporosis without current pathological fracture; Z91.89 Other specified personal risk factors, not elsewhere classified
CPT/HCPCS: 36415; 80053; 80061; 82306; 82330; 83970; 85025

== ENCOUNTER 2023-10-17 07:19 | Outpatient (AMB) | payer OTHER, SELFPAY ==
[2023-10-17 07:39] VITALS: BP 118/66; BMI 22.9
--- NOTE | 2023-10-17 07:39 | A.OFFVIS_ITS ---
Vital Signs 10/17/23 07:39 Height 5 ft 1 in Weight 121 lb 4.068 oz BMI 22.9 BP 118/66 Intake Visit Reasons: New patient Generalized Hyperhidrosis Intake Note: Hot flashes getting worse Director Distribution Required: No Information Interpreted: non-clinical & clinical Accompanied by: Self / Same As Patient Allergies Penicillins Allergy (Mild, Verified 10/17/23 07:42) N/V Post menopausal: Yes HPI Comments Details: Presenting referred from her primary care physician to discuss hot flashes night sweat. The patient has been menopausal for the last 17 years has been having hot flashes night sweats over the last 17 years. No other associated symptoms. Last mammogram was in 04/13 was BI-RADS 1. No recent annual exam PFSH Medical History Insomnia Anxiety Depression Surgical History History of tonsillectomy History of shoulder surgery Family History Father Medical history unknown Mother Medical history unknown Mother Dementia Diabetes Social History Housing: House Alcohol intake: former Patient Tobacco Use Status: Current everyday Tobacco user Tobacco use type: Cigarette Cigarette Packs Per Day: 1 Cigarettes Per Day: 20 e-Cigarette/Vaping Use: Never Used Second Hand Smoke Exposure: No service: No Current occupational status: disabled Cognitive needs: No Hearing needs: Yes Vision needs: No Review of Systems Const All systems reviewed & are unremarkable except as noted in HPI and below Reports as per HPI and Reports no additional complaints GI Reports no additional complaints Reports no additional complaints Physical Exam Vital Signs: Last Vital Signs BP 118/66 10/17/23 07:39 BMI result Body Mass Index 22.9 Assessment & Plan Assessment & Plan (1) Hot flashes: Code(s): R23.2 - [place] Category: Medical Plan: Discussed with the patient the options of treatment of hot flashes including hormonal replacement therapy, all the pros, cons, risks and benefits (benefits= prevention of hot flashes, atrophic vaginitis, osteoporosis, decrease colon ca risk; also discussed with the patient the risks of VA, Breast ca, DVT, PE, Strokes). In addition, discussed with the patient non hormonal treatment options for hot flashes treatment in surgical menopausal patient. Options discussed with the patient include the following: SSRI/SNRIs , difficulty has been demonstrated in multiple trials clinical response is more rapid (days) than typical response to SSRI for depression (weeks), they are equally effective in natural versus surgical menopause, they have similar modest benefit for hot flashes; Paroxetine 7.5 mg per day is suggested to be as a 1st choice the SSRI/SNRI such, FDA approved for treatment of hot flashes. Citalopram 20 mg per day is another 1st choice option. Sertraline (the patient has been on 50 mg p.o. daily for anxiety and depression last year's) and fluoxetine are not effective options. Effexor at 37.5 mg per day up to 75 mg per day after the 1st week has similar efficacy for hot flashes relief as low-dose estradiol at 0.5 mg per day, 47% efficacy reduction hot flashes Gabapentin it 300 mg p.o. t.i.d. especially for patient was hot flashes are at night has been shown to reduce hot flashes, 41% efficacy reduction hot flashes, if 1 of the SSRI/SNRI class of drugs is ineffective or not tolerated trial of gabapentin would be reasonable The patient would like to think about the options, ask her psychiatrist if could be switched to another SSRI/SNRI that can also reduce hot flashes other than sertraline or fluoxetine. 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 All questions answered, the patient verbalized understanding Coding Level of Care Code New Pt Level 3 (08422) Diagnoses Hot flashes R23.2
== END 2023-10-17 08:06 | disposition home or self-care (01) ==
LOC: HO.HWS 07:19
PROVIDERS: PCP Nurse Practitioner Primary Care; Visit Provider Obstetrics & Gynecology
DX: R23.2 Flushing (principal)
CPT/HCPCS: 99203

== ENCOUNTER → 2023-10-17 07:19 | Outpatient (BNVA) | payer OTHER, SELFPAY | PROVIDERS: PCP Nurse Practitioner Primary Care; Visit Provider Obstetrics & Gynecology | DX: R23.2 Flushing (principal) | CPT/HCPCS: 99202 ==

== ENCOUNTER 2023-10-20 13:51 | Outpatient (AMB) | payer OTHER, SELFPAY ==
[2023-10-20 13:53] VITALS: BP 114/70; PULSE 68; O2SAT 96; BMI 22.7
--- NOTE | 2023-10-20 13:53 | A.OFFPC_ITS ---
Vital Signs 10/20/23 13:53 Height 5 ft 1 in Weight 120 lb BMI 22.7 BP 114/70 Blood Pressure Location Lt brachial Position Sitting Pulse 68 Pulse Source Pulse Oximeter Pulse Oximetry (%) 96 Oxygen Delivery Method Room Air Intake Visit Reasons: Follow up to discuss choles, med Intake Note: pt is here to discuss cholesterol medication. [employer] Required: No Allergies Penicillins Allergy (Mild, Verified 10/20/23 14:07) N/V Medication List - Last Reconciled 10/20/23 by SARAH Daigle albuterol sulfate 90 mcg/actuation 2 puffs inhalation Q6H PRN budesonide-formoterol 160-4.5 mcg/actuation (Symbicort) 2 puffs inhalation Q12H cholecalciferol (vitamin D3) (Vitamin D3) 25 mcg PO DAILY melatonin 3 mg PO BEDTIME sertraline 50 mg PO DAILY trazodone 100 mg PO BEDTIME PRN Tobacco use date assessed: 08/17/23 Fall risk assessment: No Falls in past year Last assessed Fall Risk: 10/20/23 Dental Screening Dental Screen Date: 10/20/23 Did you have a dental visit in the last 12 months?: Yes Did you have a dental problem in the last 6 months where you did not have access to dental care?: No Was dental information given to patient?: Patient has dentist HPI HPI Comments History of Present Illness Details Patient is a 68-year-old female here today for a follow-up for labs. Recent blood draw indicated the patient has elevated cholesterol and LDL cholesterol levels. Patient is not currently taking any medications for this. [facility] Medical History (Updated 10/20/23 @ 14:21 by SARAH Daigle) Insomnia Anxiety Depression Surgical History History of tonsillectomy History of shoulder surgery Family History Father Medical history unknown Mother Medical history unknown Mother Dementia Diabetes Social History Housing: House Alcohol intake: former Patient Tobacco Use Status: Current everyday Tobacco user Tobacco use type: Cigarette Cigarette Packs Per Day: 1 Cigarettes Per Day: 20 e-Cigarette/Vaping Use: Never Used Second Hand Smoke Exposure: No service: No Current occupational status: disabled Cognitive needs: No Hearing needs: Yes Vision needs: No Questionnaire Thrive Questionnaire Date Thrive assessed: 08/17/23 ROSS-7 AMB Questionnaire ROSS-7 Date ROSS - 7 assessed: 08/17/23 Source: Developed by Drs. Hay Monae, Marilin Alfaro, Dean Strickland and colleagues, with an educational melonie from [employer]. Review of Systems Const All systems reviewed & are unremarkable except as noted in HPI and below Card Denies chest pain and Denies dyspnea Resp Denies dyspnea Musc Reports back pain (lower back) and Reports arthralgias (Right SI) Physical exam (Primary Care) Vital Signs: Last Vital Signs Pulse 68 10/20/23 13:53 BP 114/70 10/20/23 13:53 Pulse Ox 96 10/20/23 13:53 Oxygen Delivery Method Room Air 10/20/23 13:53 BMI result Body Mass Index 22.7 Tobacco/Smoking Status: Tobacco use Status Tobacco use date assessed 08/17/23 10/20/23 14:01 Patient Tobacco Use Status Current everyday Tobacco 10/20/23 14:01 Tobacco use type Cigarette 10/20/23 14:01 e-Cigarette/Vaping Use Never Used 10/20/23 14:01 Are you ready to quit: No Thrive Assessment: Date of Thrive Assessment Date Thrive assessed 08/17/23 10/20/23 14:01 Const Other: Appearance: Alert.? Oriented X3.? No acute distress.? Head: Normocephalic, Neck: Normal inspection.? Neck supple.? CVS: Normal heart rate and rhythm.? Pulses normal.? Respiratory: No respiratory distress.? ? Extremities: No lower extremity edema.? Back: No midline tenderness, no C-spine tenderness, full range of motion, no CVA tenderness bilaterally. +right SI tenderness. Neuro: Oriented X 3.? No motor deficit.? No sensory deficit. Assessment and Plan Assessment & Plan (1) Chronic right sacroiliac joint pain: Comment: Will order x-ray. Will order physical therapy based on results. Code(s): M53.3 - Sacrococcygeal disorders, not elsewhere classified; G89.29 - Other chronic pain (2) Cigarette nicotine dependence: Comment: Patient declining nicotine cessation counseling or nicotine replacement therapy. Code(s): F17.210 - Nicotine dependence, cigarettes, uncomplicated Qualifiers: Substance use status: uncomplicated Qualified Code(s): F17.210 - Nicotine dependence, cigarettes, uncomplicated (3) Dyslipidemia: Comment: Will start patient on atorvastatin 20 mg p.o. daily. Patient has been educated on side effects of this medication. Code(s): E78.5 - Hyperlipidemia, unspecified (4) Osteoporosis: Comment: Patient had recent labs. Dexa scan indicated osteoporosis of the AP spine. Patient would like X-rays before starting medication. Indicates she has difficulty swallowing medications. Patient educated about importance of quitting smoking. Educated that she is at increased risk of fracture. Code(s): M81.0 - Age-related osteoporosis without current pathological fracture Qualifiers: Osteoporosis type: unspecified Presence of current pathological fractur e: unspecified Qualified Code(s): M81.0 - Age-related osteoporosis without current pathological fracture Plan: Obtain imaging. Plan Patient will follow up in 1 month. Orders: Orders XR sacroiliac joint 1-2V Today G89.29 - Other chronic pain, M53.3 - Sacrococcygeal disorders, not elsewhere classified XR lumbar spine 2-3V Today M54.50 - Low back pain, unspecified Medications: New atorvastatin 20 mg PO DAILY 90 tabs 0RF Coding Level of Care Code Est Pt Level 3 (42089) Diagnoses Chronic right sacroiliac joint pain M53.3; G89.29 Cigarette nicotine dependence without complication F17.210 Substance use status: uncomplicated Dyslipidemia E78.5 Osteoporosis, unspecified osteoporosis type, unspecified pathological fracture presence M81.0 Osteoporosis type: unspecified Presence of current pathological fracture: unspecified Time Spent (min) 26
== END 2023-10-20 14:17 | disposition home or self-care (01) ==
PROVIDERS: PCP Nurse Practitioner Primary Care; Visit Provider Nurse Practitioner Primary Care
DX: M53.3 Sacrococcygeal disorders, not elsewhere classified (principal); G89.29 Other chronic pain; F17.210 Nicotine dependence, cigarettes, uncomplicated; E78.5 Hyperlipidemia, unspecified; M81.0 Age-related osteoporosis without current pathological fracture
CPT/HCPCS: 99213

== ENCOUNTER 2023-10-20 14:20 | Outpatient (REF) | payer OTHER, SELFPAY ==
--- NOTE | ~2023-10-20 | XR_ITS ---
EXAMINATION: XR Lumbar spine XR bilateral sacroiliac joint COMPARISON: 07/30/2020 INDICATION: Low back pain unspecified, sacrococcygeal disorders TECHNIQUE: 3 views of the lumbar spine. 3 views of the bilateral sacroiliac joints. FINDINGS: Lumbar Spine: Mild dextroscoliosis of the lumbar spine. Atherosclerotic aortic calcifications. Facet arthritis in the lower lumbar spine. Spondylosis with mild loss of disc space height at L4-L5. Mild anterolisthesis grade 1 of L4 on L5. Bilateral Sacroiliac Joints: Mild degenerative changes with hypertrophic change at bilateral sacroiliac joints, left greater than right. XR/XR sacroiliac joint 1-2V IMPRESSION: 1. Mild degenerative changes in the bilateral sacroiliac joints, left greater than right. 2. Facet arthritis in lower lumbar spine. 3. Spondylosis with mild loss of disc space height at L4-L5.
--- NOTE | ~2023-10-20 | XR_ITS ---
EXAMINATION: XR Lumbar spine XR bilateral sacroiliac joint COMPARISON: 07/30/2020 INDICATION: Low back pain unspecified, sacrococcygeal disorders TECHNIQUE: 3 views of the lumbar spine. 3 views of the bilateral sacroiliac joints. FINDINGS: Lumbar Spine: Mild dextroscoliosis of the lumbar spine. Atherosclerotic aortic calcifications. Facet arthritis in the lower lumbar spine. Spondylosis with mild loss of disc space height at L4-L5. Mild anterolisthesis grade 1 of L4 on L5. Bilateral Sacroiliac Joints: Mild degenerative changes with hypertrophic change at bilateral sacroiliac joints, left greater than right. XR/XR lumbar spine 2-3V IMPRESSION: 1. Mild degenerative changes in the bilateral sacroiliac joints, left greater than right. 2. Facet arthritis in lower lumbar spine. 3. Spondylosis with mild loss of disc space height at L4-L5.
== END 2023-10-20 14:21 | disposition home or self-care (01) ==
LOC: HO.HMGCX 14:20
PROVIDERS: PCP Nurse Practitioner Primary Care; Visit Provider Nurse Practitioner Primary Care
DX: M53.3 Sacrococcygeal disorders, not elsewhere classified (principal); M54.50 Low back pain, unspecified; G89.29 Other chronic pain
CPT/HCPCS: 72100; 72200

== ENCOUNTER 2023-11-21 12:43 | Outpatient (AMB) | payer OTHER, SELFPAY ==
--- NOTE | 2023-11-21 12:54 | A.OFFPC_ITS ---
Vital Signs 11/21/23 12:57 Height 5 ft 1 in Weight 122 lb BMI 23.0 BP 128/60 Blood Pressure Location Lt brachial Position Sitting Pulse 73 Pulse Source Pulse Oximeter Pulse Oximetry (%) 95 Oxygen Delivery Method Room Air Intake Visit Reasons: PE Intake Note: pt is here for annual PE. Mammogram 04/18/23. Bone density 09/14/23. Colon 2018 Allergies Penicillins Allergy (Mild, Verified 11/21/23 13:19) N/V Medication List - Last Reconciled 11/21/23 by SARAH Daigle albuterol sulfate 90 mcg/actuation 2 puffs inhalation Q6H PRN atorvastatin 20 mg PO DAILY budesonide-formoterol 160-4.5 mcg/actuation (Symbicort) 2 puffs inhalation Q12H cholecalciferol (vitamin D3) (Vitamin D3) 25 mcg PO DAILY melatonin 3 mg PO BEDTIME melatonin mg PO sertraline 50 mg PO DAILY trazodone 100 mg PO BEDTIME PRN Tobacco use date assessed: 11/21/23 Fall risk assessment: No Falls in past year Dental Screening Dental Screen Date: 11/21/23 Did you have a dental visit in the last 12 months?: Yes Did you have a dental problem in the last 6 months where you did not have access to dental care?: No Was dental information given to patient?: Patient has dentist HPI HPI Comments History of Present Illness Details Patient is a 68-year-old female in today for physical exam She is up-to-date with the Prevnar 20. Patient is up-to-date with her mammogram, bone density, has establish care with OBGYN. Last colonoscopy 6 years prior. History of hyperplastic polyp. Will refer. Patient does not know when previous TD shot was, will obtain records from previous provider She has a past medical history significant for: Hyperlipidemia: Taking atorvastatin 20 mg p.o. daily. Will redrawn 2 months. Osteoporosis: Patient unable to swallow large medications, contraindication for Fosamax. Patient would like to tissue with endocrinology for other options patient has been taking vitamin-D supplement as well as calcium. Recent blood draw normal 2 months prior Reactive airway disease: Patient utilizing Symbicort and albuterol. Anxiety insomnia: Utilizes sertraline 50 mg p.o. daily as well as trazodone 100 mg p.o. bedtime. Patient is establish psychiatrist Facet arthritis of lumbar spine: Patient has referral of physical therapy. Dysphagia: Patient has referral of for Gastroenterology. [facility] Medical History History of hepatitis C Pancytopenia Osteoporosis Dyslipidemia Hyperplastic colon polyp Nicotine dependence, cigarettes, uncomplicated Depression Anxiety Insomnia Surgical History History of colonoscopy History of tonsillectomy History of appendectomy History of tubal ligation History of elbow surgery History of shoulder surgery Family History Father Medical history unknown Mother Medical history unknown Mother Dementia Diabetes Social History Housing: House Alcohol intake: former Patient Tobacco Use Status: Current everyday Tobacco user Tobacco use type: Cigarette Cigarette Packs Per Day: 1 Cigarettes Per Day: 20 e-Cigarette/Vaping Use: Never Used Second Hand Smoke Exposure: No service: No Current occupational status: disabled Cognitive needs: No Hearing needs: Yes Vision needs: No Questionnaire Thrive Questionnaire Date Thrive assessed: 08/17/23 AUDIT C Alcohol Use Questionnaire (AUDIT-C) 1. How often do you have a drink containing alcohol?: Never Total Score: 0 ROSS-7 AMB Questionnaire ROSS-7 Date ROSS - 7 assessed: 08/17/23 Source: Developed by Drs. Hay Monae, Marilin Alfaro, Dean Strickland and colleagues, with an educational melonie from [employer]. Review of Systems Const All systems reviewed & are unremarkable except as noted in HPI and below Physical exam (Primary Care) Care Plan Goal for BP management: Vital signs reviewed stable. Tobacco/Smoking Status: Tobacco use Status Tobacco use date assessed 11/21/23 11/21/23 12:56 Patient Tobacco Use Status Current everyday Tobacco 11/21/23 12:56 Tobacco use type Cigarette 11/21/23 12:56 e-Cigarette/Vaping Use Never Used 11/21/23 12:56 Are you ready to quit: No Thrive Assessment: Date of Thrive Assessment Date Thrive assessed 08/17/23 11/21/23 12:56 Const Other: Appearance: Alert.? Oriented X3.? No acute distress.? Head: Normocephalic, atraumatic, no step-offs or deformities Eyes: Pupils equal, round and reactive to light.? ENT: Pharynx normal.? Neck: Normal inspection.? Neck supple.? CVS: Normal heart rate and rhythm.? Pulses normal.? Respiratory: No respiratory distress. Bilateral wheeze of upper lobes.? Abdomen: Soft and nontender.? Skin: Skin warm and dry.? Normal skin color.? Normal skin turgor.? Extremities: No lower extremity edema.? No calf ttp. 5/5 strength to bilateral upper and lower extremities Back: No midline tenderness, no C-spine tenderness, full range of motion, no CVA tenderness bilaterally Neuro: Oriented X 3.? No motor deficit.? No sensory deficit. CN 2-12 intact Assessment and Plan Assessment & Plan (1) Physical exam: Comment: She is up-to-date with the [employer] 20. Patient is up-to-date with her mammogram, bone density, has establish care with OBGYN. Last colonoscopy 6 years prior. Patient does not know when previous TD shot was, will obtain records from prev ious provider She has a past medical history significant for: Hyperlipidemia: Taking atorvastatin 20 mg p.o. daily. Will redrawn 2 months. Osteoporosis: Patient unable to swallow large medications, contraindication for Fosamax. Patient would like to tissue with endocrinology for other options patient has been taking vitamin-D supplement as well as calcium. Recent blood draw normal 2 months prior Reactive airway disease: Patient utilizing Symbicort and albuterol. Anxiety insomnia: Utilizes sertraline 50 mg p.o. daily as well as trazodone 100 mg p.o. bedtime. Patient is establish psychiatrist Facet arthritis of lumbar spine: Patient has referral of physical therapy. Dysphagia: Patient has referral of for Gastroenterology. Code(s): Z00.00 - Encounter for general adult medical examination without abnormal findings Plan: Will draw labs in 2 months Plan Will follow-up with results Orders: Orders PT Evaluation and Treatment Today M54.50 - Low back pain, unspecified Referrals Gastroenterology Referral R13.10 - Dysphagia, unspecified, Z12.11 - Encounter for screening for malignant neoplasm of colon Medications: New prednisone 20 mg PO BID 10 tabs 0RF Coding Level of Care Code Est Pt Prev Care >65y(12058) Diagnoses Physical exam Z00.00
[2023-11-21 12:57] VITALS: BP 128/60; PULSE 73; O2SAT 95; BMI 23.0
== END 2023-11-21 13:31 | disposition home or self-care (01) ==
PROVIDERS: PCP Nurse Practitioner Primary Care; Visit Provider Nurse Practitioner Primary Care
DX: Z00.00 Encounter for general adult medical examination without abnormal findings (principal)
CPT/HCPCS: 99397

== ENCOUNTER 2023-12-11 14:53 | Outpatient (AMB) | payer OTHER, SELFPAY ==
[2023-12-11 14:55] VITALS: BP 136/64; PULSE 49; BMI 23.4
--- NOTE | 2023-12-11 14:55 | A.OFFVIS_ITS ---
Vital Signs 12/11/23 14:55 Height 5 ft 1 in Weight 124 lb 1.924 oz BMI 23.4 BP 136/64 Blood Pressure Location Lt brachial Position Sitting Pulse 49 L Pulse Source Pulse Oximeter Intake Visit Reasons: Age-related osteoporosis-confirmed Intake Note: New patient present today for age-related osteoporosis office visit. 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 First diagnosed in 1 mo ago . Not Received treatment in the past No history of pathologic fracture or ONJ. Has several servings of dietary calcium per day in the form of milk, yogurt . Not Takes Calcium supplement [] mg daily in divided doses. Takes 1000 IU of Vitamin D daily. Denies ever using PPI, anticoagulant, antiepileptic not taking glucocorticoid medication. 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 Menarche at age 14 - nl menses Denies history of Kidney stones: Denies family history of Osteoporosis or hip fracture. UTD on dental cleanings and sees dentist every 6 months. Just had implants No planned upcoming dental work or extractions. Smoked 1 ppd DXA dated 09/14/23:FINDINGS: LEFT FEMUR, NECK: BMD 0.706 g/cm2, Z-score -0.6, T-score -2.4, osteopenia. LEFT FEMUR, TOTAL: BMD 0.755 g/cm2, Z-score -0.5, T-score -2.0, osteopenia. AP SPINE L1-L4: BMD 0.848 g/cm2, Z-score -0.8, T-score -2.8, osteoporosis. IDENTIFIED RISK FACTORS: Early menopause, secondary osteoporosis, tobacco use (current smoker). HISTORY OF FRACTURE: None listed. MEDICATIONS: Vitamin D. MM/XR DEXA axial skeleton IMPRESSION: 1. DIAGNOSIS: Osteoporosis based on the lowest T-score hi Labs: [facility] Medical History History of hepatitis C Pancytopenia Osteoporosis Dyslipidemia Hyperplastic colon polyp Nicotine dependence, cigarettes, uncomplicated Depression Anxiety Insomnia Surgical History History of colonoscopy History of tonsillectomy History of appendectomy History of tubal ligation History of elbow surgery History of shoulder surgery Family History Father Medical history unknown Mother Medical history unknown Mother Dementia Diabetes Social History Housing: House Alcohol intake: former Patient Tobacco Use Status: Current everyday Tobacco user Tobacco use type: Cigarette Cigarette Packs Per Day: 1 Cigarettes Per Day: 20 e-Cigarette/Vaping Use: Never Used Second Hand Smoke Exposure: No service: No Current occupational status: disabled Cognitive needs: No Hearing needs: Yes Vision needs: No Physical Exam There are no Cushingoid features. Absence of blue sclera. Absence of kyphosis. Thyroid gland is of nl size and weighs 15 gms. There are no thyroid nodules palpated. Lungs CTA. Heart S1 S2 Reg R/R Abdominal exam benign. Muscle strength 5/5 . Examination of spine reveals absence of tenderness on palpation Assessment & Plan Assessment & Plan (1) Osteoporosis: Comment: (Bone Dexa Lumbar T-score: -2.8 on 09/14/23) Code(s): M81.0 - Age-related osteoporosis without current pathological fracture Category: Medical Qualifiers: Osteoporosis type: unspecified Presence of current pathological fracture: unspecified Qualified Code(s): M81.0 - Age-related osteoporosis without current pathological fracture Plan: This 68-year-old white female with a history of osteoporosis currently on steroids. Complete secondary workup Will check 24 hour urine for calcium and creatinine, SPEP, urine immunofixation. Will ensure 1200 mg of calcium and continued vitamin-D supplementation. Assum ing above workup is negative, can talk to patient about potentially starting an anti resorptive agent like a bisphosphonate or Prolia in light of the osteoporosis and risk of fracture including smoking. Advised patient to stop smoking and relationship to osteoporosis Orders: Orders Immunofixation, Random Urine Today M81.0 - Age-related osteoporosis without current pathological fracture Calcium, 24 Hr Ur Today M81.0 - Age-related osteoporosis without current p athological fracture Protein Electrophoresis, Serum Today M81.0 - Age-related osteoporosis without current pathological fracture Creatinine, 24 Hr Group Today M81.0 - Age-related osteoporosis without current pathological fracture Coding Level of Care Code New Pt Level 4 (32186) Diagnoses Osteoporosis, unspecified osteoporosis type, unspecified pathological fracture presence M81.0 Osteoporosis type: unspecified Presence of current pathological fracture: unspecified
== END 2023-12-11 15:29 | disposition home or self-care (01) ==
PROVIDERS: PCP Nurse Practitioner Primary Care; Visit Provider Internal Medicine Endocrinology, Diabetes & Metabolism
DX: M81.0 Age-related osteoporosis without current pathological fracture (principal)
CPT/HCPCS: 99204

== ENCOUNTER → 2023-12-11 14:53 | Outpatient (BNVA) | payer OTHER, SELFPAY | PROVIDERS: PCP Nurse Practitioner Primary Care; Visit Provider Internal Medicine Endocrinology, Diabetes & Metabolism | DX: M18.0 Bilateral primary osteoarthritis of first carpometacarpal joints (principal) | CPT/HCPCS: 99202 ==

== ENCOUNTER 2023-12-13 12:52 | Outpatient (RCR) | payer OTHER, SELFPAY ==
--- NOTE | 2023-12-13 13:39 | MHC.PT.EP ---
[facility] [place] Office [place] Office [place] Office [address] Ammy Guevara [address] [phone] F: [phone] F: [phone] F: [phone] F: [phone] Physical Therapy Plan of Care Date of Evaluation: 12/13/23 Date of Surgery: n/a Diagnosis: low back pain Assessment: Patient is a 68 year old female presenting to PT with complaints of pain in her low back. Pt reports onset of pain began about 1 year ago due to insidious onset. She presents today with impairments in pain, ROM, hip strength, core strength, numbness in leg. 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 Clinical presentation today is most consistent with signs and sx associated with low back pain and pt will benefit from skilled PT week x weeks to address the following problems and impairments noted upon evaluation: pain, ROM, hip strength, core strength, numbness in leg. 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 The prescribed treatment plan of care is medically necessary. Co-morbidities of osteoporosis were identified and taken into considerations of plan of care. Pt was educated on HEP, role of PT, prognosis, POC. Frequency and Duration: The patient will be seen 2 x week x 4 weeks Short Term Goals: Pt will demonstrate ability to move through available lumbar ROM with min to no pain in 2 weeks. Pt will demonstrate reports of less incidence of numbness and centralization of sx in 2 weeks. Pt will demonstrate improved hip MMT strength by 1/3 grade in 2 weeks for improved lumbopelvic stability. Jail Goals: Pt will demonstrate Maria Del Carmen score with <25% disability in 4 weeks for improved functional mobility. Pt will demonstrate ability to complete ADLs with min to no pain in 4 weeks for return to PLOF. Treatment Plan: Modalities to reduce pain, spasms and effusion. Manual therapy to restore motion and function. Therapeutic exercise to improve strength and flexibility. Neuromuscular re-education for posture and balance. Therapeutic activities to return to functional activities of daily living. Electronically signed by: Please sign and return to therapist. Thank you for your referral.
--- NOTE | 2023-12-27 07:25 | MHC.PT.DC ---
[facility] [place] Office [place] Office [place] Office [address] Ammy Guevara [address] [phone] F: [phone] F: [phone] F: [phone] F: [phone] Physical Therapy Discharge Report Diagnosis: low back pain Date of Surgery: n/a Date of Evaluation: 12/13/23 Date of Discharge: 12/27/23 Treatments to Date: 1 Cancellations to Date: 4 No Shows to Date: 0 Discharge Status: Patient Elected to Stop Discharge Summary: Pt called to self d/c from PT cancelling all appointments. Electronically signed by: Althea Mcdonald, PT, DPT, ATC Please sign and return to therapist. Thank you for your referral.
== END 2023-12-27 07:25 | disposition home or self-care (01) ==
LOC: HO.PTCHIC 12:52
PROVIDERS: PCP Nurse Practitioner Primary Care; Visit Provider Nurse Practitioner Primary Care
DX: M54.50 Low back pain, unspecified (principal)
CPT/HCPCS: 97110; 97161

== ENCOUNTER 2023-12-15 09:40 | Outpatient (AMB) | payer OTHER, SELFPAY ==
--- NOTE | 2023-12-15 07:52 | A.OFFVIS_ITS ---
Intake Visit Reasons: Current Smoker Allergies Penicillins Allergy (Mild, Verified 12/11/23 15:01) N/V HPI HPI Current Smoker: Details: Initial visit for this 68yo smoker with a 50PYH. Patient has been smoking since age 18 for 50 years at 1ppd. . Denies marijuana use. Denies second hand smoke exposure. Denies exposure to chemicals or substances like asbestos. . Denies known family history of lung cancer. Denies personal history of cancers. Denies chest CT in last year. . Denies recent travel outside the [place]. Denies recent respiratory illness or recent hospitalization for respiratory issues. Denies testing positive for COVID. Admits receiving COVID Vaccine. x4. . Reports some difficulties with swallowing. Denies fever, chills, new/worsening cough, hemoptysis, hoarseness. Denies significant chest pain, significant dyspnea or unintentional weight loss. Patient Lung Cancer Screening Questionnaire reviewed with patient by provider. . Shared Decision Making Completed. Patient meets criteria. Discussed in detail with patient, the risk vs benefit of LDCT screening. Patient consents to proceed with scan. Discussed smoking cessation. [facility] Medical History (Updated 12/15/23 @ 09:44 by Ysabel Osorio PA-C) History of hepatitis C Pancytopenia Osteoporosis Dyslipidemia Hyperplastic colon polyp Nicotine dependence, cigarettes, uncomplicated Depression Anxiety Insomnia Surgical History History of colonoscopy History of tonsillectomy History of appendectomy History of tubal ligation History of elbow surgery History of shoulder surgery Family History Father Medical history unknown Mother Medical history unknown Mother Dementia Diabetes Social History (Updated 12/15/23 @ 09:44 by Ysabel Osorio PA-C) Housing: House Alcohol intake: former Patient Tobacco Use Status: Current everyday Tobacco user Tobacco use type: Cigarette Cigarette Packs Per Day: 1 Cigarettes Per Day: 20 Years Smoked: onset 18yo, 1ppd x 50yrs, 50pyh e-Cigarette/Vaping Use: Never Used Second Hand Smoke Exposure: No service: No Current occupational status: disabled Cognitive needs: No Hearing needs: Yes Vision needs: No Assessment & Plan Assessment & Plan (1) Nicotine dependence, cigarettes, uncomplicated: Comment: (current smoker - onset 18yo, 1ppd x 50yrs, 50pyh) Code(s): F17.210 - Nicotine dependence, cigarettes, uncomplicated Category: Medical Plan: - SDM visit completed today in office. - Patient meets criteria for LDCT for lung cancer screening purposes and is asymptomatic. - Smoking cessation counseling offered. Patients can always call [phone]. - Will arrange for a LDCT scan of the chest for screening purposes at [facility]. - Risks, benefits, and alternatives were discussed in detail and the patient agrees to proceed. - Risks discussed include but are not limited to: radiation exposure, anxiety during testing and while awaiting results, false negatives, false positives and possibility of additional intervention such as further imaging or surgical procedures for benign disease. - Benefits are obviously detection of lung cancer at an early stage which can lead to improved outcomes. - Discussed the importance of screening program compliance with adherence to yearly LDCT scan as scheduled - or sooner interval scans for personalized screening regimen. - Discussed follow up plan. Our office will send a letter discussing results and if needed set up phone call and office visit based on CT findings. - Patient educated on results categorization and the management decisions for suspicious findings potentially found on the screening LDCT scan. Any patient with a Lung RADS score of 3 or 4 will be reviewed by a multidisciplinary team at [facility] to form a plan of action in regards to scan findings. - If further work up is warranted for a suspicious lung finding this will be followed by the Lung Cancer Screening program in conjunction with the Thoracic Surgery Department at [facility]. - A copy of the office note and LDCT will be sent to the patient's PCP - as well as documentation on any associated further plans of care. - Incidental findings on LDCT are the PCP's responsibility. These findings are indicated with an S finding on the LDCT Assessment. A note discussing the findings will be sent to the PCP who is then responsible for further management. - All questions answered.? Coding Level of Care Code Lung Cancer Screening G0296 Diagnoses Nicotine dependence, cigarettes, uncomplicated F17.210
== END 2023-12-15 09:56 | disposition home or self-care (01) ==
PROVIDERS: PCP Nurse Practitioner Primary Care; Referring Provider Nurse Practitioner Primary Care; Visit Provider Physician Assistant Medical
DX: F17.210 Nicotine dependence, cigarettes, uncomplicated (principal)
CPT/HCPCS: G0296

== ENCOUNTER 2023-12-15 09:50 | Outpatient (REF) | payer OTHER, SELFPAY ==
--- NOTE | ~2023-12-15 | CT_ITS ---
EXAMINATION: CT LOW-DOSE SCREENING CHEST WITHOUT CONTRAST CLINICAL INFORMATION: Nicotine dependence, cigarettes, uncomplicated. The patient is a current smoker with a 51 pack-year history of smoking. COMPARISON: CTA chest August 16, 2012. TECHNIQUE: Multidetector volumetric CT imaging of the chest is performed on a Siemens SOMATOM Definition scanner without contrast using low dose technique. Additional 2D coronal and sagittal reformatted images and axial 3D maximum intensity projection (MIP) images are generated on the CT workstation. This CT examination was performed using dose optimization techniques as appropriate, variously including the following: *Automated exposure control *Adjustment of mA and/or kV according to patient size (this includes techniques or standardized protocols for targeted exams where dose is matched to indication/reason for exam; i.e. extremities or head) *Use of iterative reconstruction technique TOTAL EXAM DLP: 35 mGy-cm. CTDIvol: 1.04 mGy. FINDINGS: PULMONARY NODULES: Multiple small pulmonary nodules are seen the largest measuring 3 mm in the left upper lobe (5:151). [place] images of all have been saved. LUNGS: Lungs bilaterally symmetrically expanded. There is mild emphysema and bronchial thickening without bronchiectasis. No effusion or pneumothorax. Central airways patent. MEDIASTINUM: Some small nonenlarged mediastinal lymph nodes are present but there is no mediastinal, hilar or axillary adenopathy or free fluid collection. CORONARY ARTERY CALCIFICATION: Mild to moderate. THYROID GLAND: 7 mm nodule left thyroid gland. CARDIOVASCULAR STRUCTURES: Aortic and heart size normal. No pericardial effusion. CHEST WALL/AXILLA: Unremarkable. UPPER ABDOMEN: Included portions of the solid organs in the upper abdomen unremarkable on noncontrast imaging. OSSEOUS STRUCTURES: No suspicious focal findings. CT/CT lung screening IMPRESSION: Small pulmonary nodules, the largest 3 mm. No finding seen suspicious for malignancy. ASSESSMENT: 1. Lung-RADS Category 2: Benign appearance or behavior of nodules. N/A 2. Lung-RADS Category S: Negative. There are no clinically significant or potentially clinically significant findings not related to the lungs requiring urgent additional evaluation. RECOMMENDATION: Continued routine annual low-dose CT lung screening in 1 year is recommended. An order for CT CHEST LOW DOSE CANCER SCREENING ([id number]) can be placed. Electronically signed by: Deric Das MD 02/01/2024 10:18 PM EDT
== END 2023-12-15 09:51 | disposition home or self-care (01) ==
LOC: HO.CT 09:50
PROVIDERS: PCP Nurse Practitioner Family; Visit Provider Physician Assistant Medical
DX: Z12.2 Encounter for screening for malignant neoplasm of respiratory organs (principal); F17.210 Nicotine dependence, cigarettes, uncomplicated
CPT/HCPCS: 71271; G0296

== ENCOUNTER → 2024-01-17 14:37 | Outpatient (RCR) | payer OTHER, SELFPAY ==
[2020-06-29 15:04] VITALS: BP 170/80; PULSE 78; RESP 18; TEMP 36.9; BMI 19.1
[2020-06-29 15:09] LABS: MANUAL DIFF FLAG NO
--- NOTE | 2020-06-29 15:10 | PM.HEMONCPN ---
Medical Summary - Medical Summary Date of Service: 07/04/20 Medical Summary: DIAGNOSIS: PANCYTOPENIA. HEP C. CURRENT THERAPY: Status post 3 months of Harvony treatment completed 05/06/2019. Interval History Interval history: This is a pleasant 64-year-old lady, here for a follow-up visit. She tells me she has been doing well, overall. She feels some acid coming up in her throat, sometimes. She has GERD. She gets heartburn and nausea. Denies vomiting. She actually follows with Dr. Tafoya. He is going to do a tele visit and advise. She denies any diarrhea nor gross blood in the stools. She has a good appetite. She has lost some weight. No fever nor chills. No headache no dizziness. She denies chest pain or trouble breathing. She is rather anxious. Her 's cancer has come back. Rest of the review of systems is unremarkable. Review of Systems - Constitutional Reports system reviewed and no additional complaints, except as documented - Eyes Reports system reviewed and no additional complaints, except as documented - ENT Reports system reviewed and no additional complaints, except as documented - Cardiovascular Reports system reviewed and no additional complaints, except as documented - Respiratory Reports no additional respiratory complaints - Gastrointestinal Reports system reviewed and no additional complaints, except as documented - Genitourinary Reports no additional female genitourinary complaints - Musculoskeletal Reports system reviewed and no additional complaints, except as documented - Integumentary/Breasts Skin/Breast: Reports no additional skin complaints - Neurologic Reports system reviewed and no additional complaints, except as documented - Psychiatric Reports system reviewed and no additional complaints, except as documented - Endocrine Reports no additional endocrine complaints - Hematologic/Lymphatic Reports system reviewed and no additional complaints, except as documented - Allergic/Immunologic Reports system reviewed and no additional complaints, except as documented PMFSH Medical History: Medical History (Last Updated 06/29/20 @ 15:11 by Mita Mccain RN) Anxiety Depression Insomnia Functional capacity: independent ambulation Patient : No Family History: Family History (Last Updated 06/29/20 @ 15:11 by Mita Mccain RN) Father Medical history unknown Mother Medical history unknown Mother Dementia Diabetes Surgical History: Surgical History (Last Updated 03/20/20 @ 07:37 by EVELINA Mcnair) History of shoulder surgery History of tonsillectomy Social History: Social History (Last Updated 06/29/20 @ 15:12 by Mita Mccain RN) Alcohol History: Alcohol intake: former Tobacco History: Tobacco Type: Cigarette Home Medications and Allergies Home Medications Medication Instructions Recorded Confirmed Type docusate sodium 100 mg capsule 100 mg PO BID 03/23/20 06/29/20 History acetaminophen [Tylenol] 325 mg PO NEEDED 06/29/20 06/29/20 History cholecalciferol (vitamin D3) 25 mcg PO DAILY 06/29/20 06/29/20 History [Vitamin D3] Allergies Allergy/AdvReac Type Severity Reaction Status Date / Time Penicillins Allergy Mild N/V Verified 03/23/20 14:39 Exam Vital signs: Vital Signs Temp 98.5 F 06/29/20 15:04 Pulse 78 06/29/20 15:04 Resp 18 06/29/20 15:04 BP 170/80 H 06/29/20 15:04 Intake & Output 06/28/20 06/29/20 06/29/20 18:59 06:59 18:59 Other: Weight 45.8 kg [place] Weight in Grams 00998 Weight 45.8 kg Body Mass Index 19.1 - Constitutional Present: no acute distress - Routine HEENT Exam Head: Present: normal inspection Eye: Present: normal appearance ENT: Present: mucous membranes moist - Routine Neck Exam Present: full ROM - Routine Respiratory Exam Present: CTAB - Routine Cardiovascular Exam Cardiovascular: Present: RRR, S1, S2 - Routine Abdominal Exam Present: soft, nontender - Routine Rectal Exam Patient deferred: digital exam - Routine Extremities Exam Present: nontender - Routine Back/Spine/Pelvis Exam Back/Spine: Present: full ROM - Routine Skin Exam Present: intact - Routine Neurological Exam Present: alert, oriented X3 - Routine Psychiatric Exam Present: normal affect Data - Labs CBC & Chem 7: 06/29/20 15:04 06/29/20 15:04 Progress Note: A/P (1) Pancytopenia Status: Acute Assessment and plan: This is a pleasant 64 year-old lady, here for Leukopenia and Thrombocytopenia. In the past, she has tested positive for Hepatitis-C. She has completed treatment for it, with valent[facility] Yu in April,. This is most likely the reason for the underlying mild Pancytopenia, via mechanism of Hypersplenism. Her hep C viral load was less than 15, HCV PCR log less than 1.18, back in July. DIFFERENTIAL DIAGNOSIS INCLUDES: 1. Drug related: However denies any recent new medication intake. 2. Infection related: No recent history of fever, chills nor night sweats. No obvious infections noted. 3. B12 folate deficiency: However recent B12 and folate levels are in the normal range. 4. Underlying myelo infiltrative disorder: i.e MDS versus multiple myeloma. SIEP. 5. HIV: Negative. She is physically doing well. Her blood count is in the normal range, now. She has quit smoking. PLAN: I encouraged her to do that. I will keep a close eye on her blood count. If the count continues to decline to 2 or below, I will proceed with a bone marrow exam for further evaluation. She will return in 6 months for a follow-up visit. Thank you, CC: Dr. Samaria Tafoya. Dominik Alex. - Time Spent With Patient Total time spent is greater than 50% in coordination of care (as documented) at patient's floor/unit and/or counseling patient: 25 - 35 minutes
[2020-06-29 15:16] LABS: Basophils Percent Auto 0.3 % (0-2); Eosinophils Absolute Auto 0.1 X10*3/uL (0.0-0.4); Hemoglobin 13.4 g/dl (12.0-16.0); Imm Gran Abs Auto 0.02 X10*3/uL (0.00-0.03); Imm Gran Pct Auto 0.3 % (0.0-0.4); Lymphocytes Absolute Auto 3.3 X10*3/uL (1.2-4.9); Lymphocytes Percent Auto 48.7 % (20-40); Mean Corpuscular HGB Conc 34.4 g/dl (31.0-35.0); Mean Corpuscular Hemoglobin 33.3 pg (27.0-33.0); Mean Corpuscular Volume 96.8 fL (80-98); Mean Platelet Volume 11.4 fL (9.4-12.3); Monocytes Absolute Auto 0.5 X10*3/uL (0.1-1.2); Monocytes Percent Auto 8.1 % (2-11); Neutrophils Absolute Auto 2.8 X10*3/uL (2.0-8.3); Neutrophils Percent Auto 41.6 % (45-73); Platelet Count 160 X10*3/uL (160-400); Red Blood Count 4.03 X10*6/uL (4.20-5.50); Red Cell Distribution Width 13.5 % (11.0-16.0); White Blood Count 6.7 X10*3/uL (4.8-10.8)
[2020-06-29 15:28] VITALS: BP 151/71; PULSE 67
[2020-06-29 15:38] LABS: D Dimer 2640 NG/ML
[2020-06-29 15:50] LABS: Alanine Aminotransferase 13 U/L (0-31); Albumin Level 4.7 g/dL (3.5-5.0); Alkaline Phosphatase 71 U/L (39-117); Anion Gap 10 (12-20); Aspartate Amino Transferase 17 U/L (5-31); Bilirubin Total 1.1 mg/dL (0.0-1.0); Blood Urea Nitrogen 24 mg/dL (9-16); Calcium 10.2 mg/dL (8.4-10.2); Carbon Dioxide 29 mmol/L (22-29); Chloride 105 mmol/L (96-108); Creatinine Clr Calc Pharmacy 42.8; Estimated Glomerular Filt Rate 58; Glucose Random 92 mg/dL (60-115); Potassium 4.4 mmol/L (3.3-5.1); Sodium 140 mmol/L (135-145); Total Protein 7.5 g/dL (6.5-8.0)
[2020-06-29 16:11] LABS: Ferritin 113 ng/mL (10-250)
--- NOTE | 2020-06-29 16:18 | MHC.HEMONC ---
Pt here for Hem follow up with Dr Dash. Clinical summary updated by nurse. Labs drawn and results reviewed by Dr Dash. Follow up appointment made
--- NOTE | 2020-06-30 08:22 | MHC.HEMONCMA ---
Dr Dash ordered CT's of patient's abdomen/pelvis and chest. Both orders were printed and placed in Caroline's inbox.
[2020-06-30 09:09] LABS: Lactate Dehydrogenase 142 U/L (122-220)
--- NOTE | 2020-07-17 14:31 | HO.HEMONCPA ---
[place] FOR CT -CODE 49738 DENIED. REF ID#: [id number]. DENIAL DOC SCANNED IN PT'S CHART. DR PENA NOTIFIED. SHE WILL ORDER ULTRSOUND SCAN
--- NOTE | 2020-07-24 13:22 | MHC.HEMONCMA ---
Ultrasound order placed in order medical anthropology director.
--- NOTE | 2020-07-24 15:12 | MHC.HEMONCMA ---
Patient was notified that the ultrasound is being done because of her condition and the fact that her insurance will not cover a CT. Patient is aware.
== END | disposition home or self-care (01) ==
LOC: HO.ONC 06-29 14:46
PROVIDERS: PCP Internal Medicine; Visit Provider Internal Medicine Medical Oncology
DX: D61.818 Other pancytopenia (principal); Z86.19 Personal history of other infectious and parasitic diseases; Z87.891 Personal history of nicotine dependence
CPT/HCPCS: 36415; 80053; 82378; 82728; 83615; 85025; 85379; 99214

== ENCOUNTER 2024-02-05 14:36 | Outpatient (AMB) | payer MEDICARE, SELFPAY ==
[2024-02-05 14:39] VITALS: BP 142/72; BMI 23.2
--- NOTE | 2024-02-05 14:39 | MHC.OFFVIS ---
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 The patient has been on sertraline for long-term to control her depression and PTSD. She contacted her psychiatrist and asked her to contact my office to discuss nonhormonal options to control her depression and hot flashes. But I did not receive any call from her psychiatrist yet. The patient is still complaining of hot flashes [facility] Medical History History of hepatitis C Pancytopenia Osteoporosis Dyslipidemia Hyperplastic colon polyp Nicotine dependence, cigarettes, uncomplicated Depression Anxiety Insomnia Surgical History History of colonoscopy History of tonsillectomy History of appendectomy History of tubal ligation History of elbow surgery History of shoulder surgery Family History Father Medical history unknown Mother Medical history unknown Mother Dementia Diabetes Social History Housing: House Alcohol intake: former Patient Tobacco Use Status: Current everyday Tobacco user Tobacco use type: Cigarette Cigarette Packs Per Day: 1 Cigarettes Per Day: 20 Years Smoked: onset 18yo, 1ppd x 50yrs, 50pyh e-Cigarette/Vaping Use: Never Used Second Hand Smoke Exposure: No service: No Current occupational status: disabled Cognitive needs: No Hearing needs: Yes Vision needs: No Review of Systems Const All systems reviewed & are unremarkable except as noted in HPI and below Reports as per HPI and Reports no additional complaints GI Reports no additional complaints Reports no additional complaints Physical Exam Vital Signs: Last Vital Signs BP 142/72 H 02/05/24 14:39 BMI result Body Mass Index 23.2 Assessment & Plan Assessment & Plan (1) Hot flashes: Code(s): R23.2 - [place] Category: Medical Plan: Discussed with the patient nonhormonal option for hot flashes Paroxetine 7.5 mg per day is suggested to be as a 1st choice the SSRI/SNRI such, FDA approved for treatment of hot flashes. Citalopram 20 mg per day is another 1st choice option. Explained to the patient that Sertraline and fluoxetine are not effective options. Since the patient is on sertraline for the treatment of depression for PTSD, recommended for patient to ask her psychiatrist to contact me to discuss alternative options that will control her hot flashes and switch potentially from sertraline the patient will share my phone number with her psychiatrist. All questions answered, the patient verbalized understanding Coding Level of Care Code Est Pt Level 3 (40302) Diagnoses Hot flashes R23.2
== END 2024-02-05 15:58 | disposition home or self-care (01) ==
PROVIDERS: PCP Nurse Practitioner Primary Care; Visit Provider Obstetrics & Gynecology
DX: R23.2 Flushing (principal)
CPT/HCPCS: 99213

== ENCOUNTER → 2024-02-05 14:36 | Outpatient (BNVA) | payer MEDICARE, SELFPAY | PROVIDERS: PCP Nurse Practitioner Primary Care; Visit Provider Obstetrics & Gynecology | DX: Z01.419 Encounter for gynecological examination (general) (routine) without abnormal findings (principal); R23.2 Flushing | CPT/HCPCS: 99212 ==

== ENCOUNTER 2024-04-09 06:16 | Outpatient (REF) | payer MEDICARE, SELFPAY ==
[2024-04-11 10:04] LABS: Prot Elec - Albumin 4.4 g/dL (3.8-4.8); Prot Elec - Alpha1 0.3 g/dL (0.2-0.3); Prot Elec - Beta 1 0.5 g/dL (0.4-0.6); Prot Elec - Beta 2 0.2 g/dL (0.2-0.5); Prot Elec - Gamma 0.7 g/dL (0.8-1.7); Prot Elec - Total Protein 7.1 g/dL (6.1-8.1)
== END 2024-04-09 06:17 | disposition home or self-care (01) ==
LOC: HO.HMGCLDS 06:16
PROVIDERS: PCP Nurse Practitioner Family; Visit Provider Internal Medicine Endocrinology, Diabetes & Metabolism
DX: M81.0 Age-related osteoporosis without current pathological fracture (principal)
CPT/HCPCS: 84165; 86335

== ENCOUNTER 2024-04-11 08:00 | Outpatient (REF) | payer MEDICARE, SELFPAY ==
[2024-04-11 13:57] LABS: Total Volume 24 Hour Urine 1325 mL
[2024-04-11 14:14] LABS: Creatinine, 24Hr Urine 0.8 G/Day (1.0-2.0); Creatinine, mg/dL 61.57
[2024-04-13 16:53] LABS: Calcium, 24 Hr Urine 95 mg/24 h; Calcium/Creatinine Ratio 113 mg/g creat (30-275); Creatinine 24Hr Urine 0.85 g/24 h (0.50-2.15)
== END 2024-04-11 08:01 | disposition home or self-care (01) ==
LOC: HO.HMGCLNP 08:00
PROVIDERS: PCP Internal Medicine; Visit Provider Internal Medicine Endocrinology, Diabetes & Metabolism
DX: Z13.89 Encounter for screening for other disorder (principal)
CPT/HCPCS: 82340; 82570

== ENCOUNTER 2024-04-11 12:15 | Outpatient (AMB) | payer MEDICARE, SELFPAY ==
--- NOTE | 2024-04-11 12:58 | MHC.OFFWIV ---
Intake Vital Signs 04/11/24 12:59 Weight 131 lb BP 140/80 H Blood Pressure Location Lt brachial Position Sitting Pulse 84 Pulse Source Pulse Oximeter Pulse Oximetry (%) 94 Oxygen Delivery Method Room Air Intake Visit Reasons: EP-stomach pain and bloated Intake Note: Patient here for lower abdominal pain and bloating that has been present for about 2-3 weeks. Patient Tobacco Use Status: Current everyday Tobacco user Allergies Penicillins Allergy (Mild, Verified 04/11/24 13:00) N/V Do you need a note to return to daycare/school/sports/work: No HPI HPI Comments History of Present Illness Details The patient is a 68-year-old female presenting with abdominal pain and constipation. She reports that her stomach has been hurting, particularly in the lower abdomen, for two to three weeks. She describes a sensation of bloating accompanying the pain. The patient has experienced a significant amount of constipation, which has recently alternated with softer stools. She denies any changes in urinary habits, such as burning with urination, increased frequency, or hematuria, and reports no abnormal vaginal discharge. She has not experienced any fever or back pain. Despite her weight being approximately 130 pounds, she expresses a desire to reduce her weight further and attributes any recent changes to bloating. She has been taking MiraLAX and Colace to alleviate constipation, with partial relief. There are no reports of nausea, vomiting, or passing bloody or black stools. Her past surgical history includes an appendectomy at the age of 17. [facility] Medical History History of hepatitis C Pancytopenia Osteoporosis Dyslipidemia Hyperplastic colon polyp Nicotine dependence, cigarettes, uncomplicated Depression Anxiety Insomnia Surgical History History of colonoscopy History of tonsillectomy History of appendectomy History of tubal ligation History of elbow surgery History of shoulder surgery Family History Father Medical history unknown Mother Medical history unknown Mother Dementia Diabetes Social History Housing: House Alcohol intake: former Patient Tobacco Use Status: Current everyday Tobacco user Tobacco use type: Cigarette Cigarette Packs Per Day: 1 Cigarettes Per Day: 20 Years Smoked: onset 18yo, 1ppd x 50yrs, 50pyh e-Cigarette/Vaping Use: Never Used Second Hand Smoke Exposure: No service: No Current occupational status: disabled Cognitive needs: No Hearing needs: Yes Vision needs: No Review of Systems Const All systems reviewed & are unremarkable except as noted in HPI and below Physical Exam Vital Signs: Last Vital Signs Pulse 84 04/11/24 12:59 BP 140/80 H 04/11/24 12:59 Pulse Ox 94 04/11/24 12:59 Oxygen Delivery Method Room Air 04/11/24 12:59 Results AMB Urinalysis, Automated UA Leukoctes 0 Desmond/uL Last Edit by Danae Tan [facility] on 04/11/24 13:32 UA Nitrite Negative Last Edit by Danae Tan [facility] on 04/11/24 13:32 UA Urobilinogen 0.2 mg/dL Last Edit by Danae Tan [facility] on 04/11/24 13:32 UA Protein 0 mg/dL Last Edit by Danae Tan [facility] on 04/11/24 13:32 UA pH 6.0 Last Edit by Danae Tan [facility] on 04/11/24 13:32 UA Blood 0 Royer/uL Last Edit by Danae Tan [facility] on 04/11/24 13:32 UA Specific [place] 1.030 Last Edit by Danae Tan [facility] on 04/11/24 13:32 UA Ketone Positive Last Edit by Danae Tan [facility] on 04/11/24 13:32 UA Bilirubin 0 mg/dL Last Edit by Danae Tan [facility] on 04/11/24 13:32 UA Glucose 0 mg/dL Last Edit by Danae Tan [facility] on 04/11/24 13:32 Results Reviewed Results Reviewed: Laboratory Last Values Urine pH (Auto) 6.0 04/11/24 13:31 Specific [place] (Auto) 1.030 04/11/24 13:31 Urine Protein (Auto) 0 mg/dL 04/11/24 13:31 Glucose (UA)(Auto) 0 mg/dL 04/11/24 13:31 Urine Ketones (Auto) Positive 11/21/24 13:31 Urine Blood (Auto) 0 Royer/uL 04/11/24 13:31 Urine Nitrite (Auto) Negative 04/11/24 13:31 Urine Bilirubin (Auto) 0 mg/dL 04/11/24 13:31 Urine Urobilinogen (Auto) 0.2 mg/dL 04/11/24 13:31 Leukocyte Esterase (Auto) 0 Desmond/uL 04/11/24 13:31 Assessment & Plan Assessment & Plan (1) Abdominal pain in female: Code(s): R10.9 - Unspecified abdominal pain Plan: - UA negative, urine culture sent given the location of the abdominal pain. H Pylori testing done as well today. - Bowel Function: Encourage continued use of MiraLAX and Colace for constipation management. Consider dietary modifications to alleviate symptoms and evaluate bowel habits. - Additional Testing: I sent a note to your PCP for further evaluation which may include abdominal imaging or referral for gastrointestinal evaluation to explore other causes of abdominal pain and mixed bowel habits. - Go to the ED if worsening symptoms, fever or pain. Orders: Orders H Pylori Breath Test Today AMB Urinalysis Automated Today Z13.9 - Encounter for screening, unspecified Urine Culture Today R10.9 - Unspecified abdominal pain Coding Level of Care Code Est Pt Level 4 (86854) Diagnoses Abdominal pain in female R10.9
[2024-04-11 12:59] VITALS: BP 140/80; PULSE 84; O2SAT 94
== END 2024-04-11 14:38 | disposition home or self-care (01) ==
PROVIDERS: PCP Internal Medicine; Visit Provider Physician Assistant
DX: R10.9 Unspecified abdominal pain (principal); Z13.9 Encounter for screening, unspecified

== ENCOUNTER 2024-04-11 12:15 | Outpatient (REF) | payer MEDICARE, SELFPAY ==
[2024-04-13 07:20] LABS: H Pylori Breath Test Negative (Negative)
== END 2024-04-11 12:16 | disposition home or self-care (01) ==
LOC: HO.LAB 12:15
PROVIDERS: PCP Internal Medicine; Visit Provider Physician Assistant
DX: R10.9 Unspecified abdominal pain (principal); M81.0 Age-related osteoporosis without current pathological fracture
CPT/HCPCS: 81003; 82340; 82570; 83013; 87086; 99212

== ENCOUNTER 2024-04-17 13:50 | Outpatient (AMB) | payer MEDICARE, SELFPAY ==
--- NOTE | 2024-04-17 14:03 | A.OFFVIS_ITS ---
Vital Signs 04/17/24 14:05 Height 5 ft 1.2 in Weight 132 lb 15.02 oz BMI 25.0 BP 148/64 H Blood Pressure Location Rt brachial Position Sitting Pulse 77 Pulse Source Pulse Oximeter Intake Visit Reasons: Age-related osteoporosis-confirmed Intake Note: Patient present today for age-related Osteoporosis follow up. 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 First diagnosed in 1 mo ago . Not Received treatment in the past No history of pathologic fracture or ONJ. Has several servings of dietary calcium per day in the form of milk, yogurt . Not Takes Calcium supplement [] mg daily in divided doses. Takes 1000 IU of Vitamin D daily. Denies ever using PPI, anticoagulant, antiepileptic not taking glucocorticoid medication. 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 Menarche at age 14 - nl menses Denies history of Kidney stones: Denies family history of Osteoporosis or hip fracture. UTD on dental cleanings and sees dentist every 6 months. Just had implants No planned upcoming dental work or extractions. Smoked 1 ppd DXA dated 09/14/23:FINDINGS: LEFT FEMUR, NECK: BMD 0.706 g/cm2, Z-score -0.6, T-score -2.4, osteopenia. LEFT FEMUR, TOTAL: BMD 0.755 g/cm2, Z-score -0.5, T-score -2.0, osteopenia. AP SPINE L1-L4: BMD 0.848 g/cm2, Z-score -0.8, T-score -2.8, osteoporosis. IDENTIFIED RISK FACTORS: Early menopause, secondary osteoporosis, tobacco use (current smoker). HISTORY OF FRACTURE: None listed. MEDICATIONS: Vitamin D. MM/XR DEXA axial skeleton IMPRESSION: 1. DIAGNOSIS: Osteoporosis based on the lowest T-score ma Labs: [facility] Medical History History of hepatitis C Pancytopenia Osteoporosis Dyslipidemia Hyperplastic colon polyp Nicotine dependence, cigarettes, uncomplicated Depression Anxiety Insomnia Surgical History History of colonoscopy History of tonsillectomy History of appendectomy History of tubal ligation History of elbow surgery History of shoulder surgery Family History Father Medical history unknown Mother Medical history unknown Mother Dementia Diabetes Social History Housing: House Alcohol intake: former Patient Tobacco Use Status: Current everyday Tobacco user Tobacco use type: Cigarette Cigarette Packs Per Day: 1 Cigarettes Per Day: 20 Years Smoked: onset 18yo, 1ppd x 50yrs, 50pyh e-Cigarette/Vaping Use: Never Used Second Hand Smoke Exposure: No service: No Current occupational status: disabled Cognitive needs: No Hearing needs: Yes Vision needs: No Physical Exam Vital Signs: Last Vital Signs Pulse 77 04/17/24 14:05 BP 148/64 H 04/17/24 14:05 BMI result Body Mass Index 25.0 Assessment & Plan Assessment & Plan (1) Osteoporosis: Comment: (Bone Dexa Lumbar T-score: -2.8 on 09/14/23) Code(s): M81.0 - Age-related osteoporosis without current pathological fracture Category: Medical Qualifiers: Osteoporosis type: unspecified Presence of current pathological fracture: unspecified Qualified Code(s): M81.0 - Age-related osteoporosis without current pathological fracture Plan: This 68-year-old white female with a history of osteoporosis currently on steroids. Complete secondary workup was negative Will ensure 1200 mg of calcium and continued vitamin-D supplementation. Willtalk to patient about potentially starting an anti resorptive agent like a bisphosphonate or Prolia in light of the osteoporosis and risk of fracture including smoking. Advised patient to stop smoking and relationship to osteoporosis. Effort discussion with the patient we decided to start oral alendronate 70 mg Q weekly. I went over proper administration of alendronate and went over potential side effects including but not limited to joint pains, atypical femur fracture and osteonecrosis of the jaw. Will check urine NTX in 4 months Orders: Orders Collagen Crosslinks NTX 4 Months M81.0 - Age-related osteoporosis without current pathological fracture Medications: New alendronate 70 mg PO QWEEK 5 tabs 5RF Coding Level of Care Code Est Pt Level 3 (71599) Diagnoses Osteoporosis, unspecified osteoporosis type, unspecified pathological fracture presence M81.0 Osteoporosis type: unspecified Presence of current pathological fracture: unspecified
[2024-04-17 14:05] VITALS: BP 148/64; PULSE 77; BMI 25.0
== END 2024-04-17 14:23 | disposition home or self-care (01) ==
PROVIDERS: Visit Provider Internal Medicine Endocrinology, Diabetes & Metabolism
DX: M81.0 Age-related osteoporosis without current pathological fracture (principal)
CPT/HCPCS: 99213

== ENCOUNTER → 2024-04-17 13:50 | Outpatient (BNVA) | payer MEDICARE, SELFPAY | PROVIDERS: Visit Provider Internal Medicine Endocrinology, Diabetes & Metabolism | DX: M81.0 Age-related osteoporosis without current pathological fracture (principal) | CPT/HCPCS: 99212 ==

== ENCOUNTER 2024-04-23 13:25 | Outpatient (REF) | payer MEDICARE, SELFPAY ==
--- NOTE | ~2024-04-23 | MM_ITS ---
EXAMINATION: MM SCREENING DIGITAL BREAST TOMOSYNTHESIS, BILATERAL CLINICAL INFORMATION: Screening. Asymptomatic. COMPARISON: Mammography: Comparison is made with available priors TECHNIQUE: Digital breast mammography with tomosynthesis is performed in both the craniocaudal and mediolateral oblique views along with computer-aided detection (CAD). FINDINGS: The breasts are heterogeneously dense, which may obscure small masses (ACR BI-RADS breast composition Category c). There are no significant masses, abnormal calcifications, or other abnormalities. MM/MM tomosynthesis screening BI IMPRESSION: No mammographic evidence of malignancy. ASSESSMENT: BI-RADS BI-RADS 1 - Negative RECOMMENDATION: Routine annual mammography screening. 1 year F/U This examination should not preclude the clinical evaluation of a suspicious palpable abnormality. This patient's information was entered into a reminder system with a target due date for their next mammogram. Electronically signed by: Briana Garcia DO 04/29/2024 05:47 PM RAMYA
== END 2024-04-23 13:26 | disposition home or self-care (01) ==
LOC: HO.MAMMO 13:25
PROVIDERS: PCP Nurse Practitioner Family; Visit Provider Internal Medicine
DX: Z12.31 Encounter for screening mammogram for malignant neoplasm of breast (principal)
CPT/HCPCS: 77063; 77067

== ENCOUNTER → 2024-04-23 13:45 | Outpatient (BNV) | payer MEDICARE, SELFPAY | PROVIDERS: PCP Nurse Practitioner Family; Visit Provider Internal Medicine | DX: Z12.31 Encounter for screening mammogram for malignant neoplasm of breast (principal) | CPT/HCPCS: 77063; 77067 ==

== ENCOUNTER 2024-05-24 14:51 | Outpatient (REF) | payer MEDICARE, MEDICAID, SELFPAY ==
--- NOTE | ~2024-05-24 | CT_ITS ---
EXAMINATION: CT ABDOMEN PELVIS WITHOUT IV CONTRAST HISTORY: R10.9 - Unspecified abdominal pain COMPARISON: Comparison is made with the prior examination dated 08/10/2007. TECHNIQUE: CT scan of the abdomen and pelvis was performed without contrast using standard departmental protocol. Coronal and sagittal reformatted images were generated and reviewed. The patient received oral contrast material. This CT exam was performed with one or more of the following dose reduction techniques: automated exposure control, adjustment of the mA and/or kV according to patient size, use of iterative reconstruction technique. DLP: 336 mGy-cm FINDINGS: LOWER CHEST: The visualized lung bases are clear. There is no pleural effusion. CARDIOVASCULATURE: The heart is normal in size. There is no pericardial effusion. LIVER: The liver is normal in size and contour. The liver has an unremarkable unenhanced appearance. GALLBLADDER / BILE DUCTS: The gallbladder is unremarkable. There is no intra or extrahepatic biliary ductal dilatation. SPLEEN: The spleen is normal in size and has an unremarkable unenhanced appearance. PANCREAS: The pancreas has an unremarkable unenhanced appearance. ADRENAL GLANDS: Unremarkable. KIDNEYS/RETROPERITONEUM: No renal calculi are identified. There is no hydronephrosis. LYMPH NODES: No retroperitoneal lymphadenopathy is identified in the abdomen or pelvis. VASCULATURE: The abdominal aorta demonstrates atherosclerotic calcification, but is normal in caliber. There is a duplicated inferior vena cava. MESENTERY/PERITONEUM: No free fluid. No masses. There is no free intraperitoneal gas. STOMACH: There is a small hiatal hernia. The remainder of the stomach is partially collapsed, limiting evaluation. SMALL BOWEL: The small bowel is normal in caliber. COLON: The colon is unremarkable. APPENDIX: Appendix is not seen, however no inflammatory changes are seen adjacent to the cecum. URINARY BLADDER/PELVIC ORGANS: The urinary bladder is collapsed, limiting evaluation. The uterus has an unremarkable unenhanced appearance. BONES / SOFT TISSUES: No suspicious bony or soft tissue abnormalities. CT/CT abdomen pelvis wo IV con IMPRESSION: Small hiatal hernia. Otherwise Unremarkable unenhanced CT of the abdomen and pelvis. Electronically signed by: Hay Stephens MD 05/27/2024 09:23 AM [facility]
== END 2024-05-24 14:52 | disposition home or self-care (01) ==
LOC: HO.CT 14:51
PROVIDERS: PCP Nurse Practitioner Family; Visit Provider Nurse Practitioner Family
DX: R10.9 Unspecified abdominal pain (principal); R10.2 Pelvic and perineal pain
CPT/HCPCS: 74176

== ENCOUNTER → 2024-05-24 15:17 | Outpatient (BNV) | payer MEDICARE, MEDICAID, SELFPAY | PROVIDERS: PCP Nurse Practitioner Family; Visit Provider Radiology Diagnostic Radiology | DX: R10.9 Unspecified abdominal pain (principal) | CPT/HCPCS: 74176 ==

== ENCOUNTER 2024-06-24 12:51 | Outpatient (AMB) | payer OTHER, SELFPAY ==
[2024-06-24 12:54] VITALS: BP 120/60; PULSE 84; TEMP 36.7; O2SAT 95; BMI 24.6
--- NOTE | 2024-06-24 12:54 | A.OFFPC_ITS ---
Vital Signs 06/24/24 12:54 Height 5 ft 1 in Weight 130 lb BMI 24.6 BP 120/60 Blood Pressure Location Rt brachial Position Sitting Pulse 84 Pulse Source Pulse Oximeter Temp 98.0 F Temp Source Oral Pulse Oximetry (%) 95 Oxygen Delivery Method Room Air Intake Visit Reasons: Transfer from [facility]/Dyslipidemia Intake Note: pt is here for to est care, transfer from [facility]. 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 Accompanied by: Self / Same As Patient Allergies Penicillins Allergy (Mild, Verified 06/24/24 12:55) N/V Medication List - Last Reconciled 06/24/24 by SARAH Reid- cholecalciferol (vitamin D3) (Vitamin D3) 25 mcg PO DAILY citalopram mg PO DAILY melatonin mg PO trazodone mg PO Tobacco use date assessed: 06/24/24 Fall risk assessment: No Falls in past year Last assessed Fall Risk: 06/24/24 Dental Screening Dental Screen Date: 06/24/24 Did you have a dental visit in the last 12 months?: Yes Did you have a dental problem in the last 6 months where you did not have access to dental care?: No Was dental information given to patient?: Patient has dentist HPI Transfer from [facility]/Dyslipidemia HPI Details Chief Complaint Transfer from another provider for ongoing management of dyslipidemia. History of Present Illness The patient is a 68-year-old female presenting for the transfer of care primarily for the management of dyslipidemia. She has been undergoing treatment for dyslipidemia, with ongoing monitoring required. The patient is currently being seen by endocrinology for osteoporosis management, and her bone density is up to date. She has no reported complications regarding her osteoporosis at this time. Additionally, her other preventative care measures, including mammograms and colon screenings, are reported as current. The patient is an active smoker and participates in a low-dose CT scan program due to her smoking status. There have been no changes to her smoking habits recently. Her immediate history during this visit does not include any complaints apart from the standard management requirements for these chronic conditions. Social History - Active smoker, participates in a low-d ose CAT scan program. Health Maintenance - Up-to-date bone density tests for oste oporosis. - Current mammograms. - Up-to-date colon screening. - Enrollment in a low-dose CAT scan prog hua for smokers. Review of Systems - Cardiovascular: Denies edema. Physical Exam General: Cooperative, healthy appearing, comfortable, no acute distress and well developed Orientation: Patient oriented x3 Limitations: No limitations Head: Normal to inspection Ears: Hearing grossly normal bilaterally Nose: Normal external nose present Face and sinus: Papillary lesions present on face Eyes: Appearance normal, both eyes and all related structures Neck: Normal visual inspection and Yes full ROM Respiratory: Lungs clear. Normal respiratory effort and able to speak in complete sentences. Clear to auscultation bilaterally Cardiovascular: Regular rate and rhythm. Normal S1 and S2 GI: Normal to inspection. Soft to palpation and nontender Skin: No rashes or lesions noted Neuro: Patient oriented x3 Extremities: No edema. Normal to inspection Results Plan - Continue monitoring dyslipidemia; lipi d panel, CBC, CMP, and thyroid labs ordered for current assessment. - Papillary facial lesions will be furth er assessed to determine necessary dermatological consult or action. Discussion Notes I discussed with the patient her ongoing treatments and necessary follow-up for dyslipidemia and osteoporosis. Additionally, the importance of maintaining up-to-date health screenings, such as her bone density, mammograms, and colonoscopies, was reviewed. Given her active smoking status, the participation in a low-dose CAT scan program is crucial to monitor and mitigate associated risks. Patient Instructions - Continue participation in the low-dose CAT scan program. - Follow up on the results of the lipid panel, CBC, CMP, and thyroid labs. - Monitor facial lesions and report any changes or concerns. [facility] Medical History (Updated 06/24/24 @ 13:16 by SARAH Reid-JD) Hiatal hernia History of hepatitis C Pancytopenia Osteoporosis Dyslipidemia Hyperplastic colon polyp Nicotine dependence, cigarettes, uncomplicated Depression Anxiety Insomnia Surgical History History of colonoscopy History of tonsillectomy History of appendectomy History of tubal ligation History of elbow surgery History of shoulder surgery Family History (Reviewed 06/24/24 @ 12:56 by Moises Figueroa [facility]) Father Medical history unknown Mother Medical history unknown Mother Dementia Diabetes Social History Housing: House Alcohol intake: former Patient Tobacco Use Status: Current everyday Tobacco user Tobacco use type: Cigarette Cigarette Packs Per Day: 1 Cigarettes Per Day: 20 Years Smoked: onset 18yo, 1ppd x 50yrs, 50pyh Packs Per Year: 0 Packs per year/per ci.00 e-Cigarette/Vaping Use: Never Used Second Hand Smoke Exposure: No service: No Current occupational status: disabled Cognitive needs: No Hearing needs: Yes Vision needs: No Questionnaire PHQ-9 Over the last 2 weeks, how often have you been bothered by any of the following problems? 1. Little interest or pleasure in doing things: not at all 2. Feeling down, depressed, or hopeless: several days 3. Trouble falling or staying asleep, or sleeping too much: several days 4. Feeling tired or having little energy: not at all 5. Poor appetite or overeating: not at all 6. Feeling bad about yourself - or that you are a failure or have let yourself or your family down: not at all 7. Trouble concentrating on things, such as reading the newspaper or watching television: not at all 8. Moving or speaking so slowly that other people could have noticed. Or the opp osite - being so fidgety or restless that you have been moving around a lot more than usual: not at all 9. Thoughts that you would be better off or of hurting yourself in some way: not at all Total score: 2 Depression Screening Interpretation: Negative Depression Screening Done: Yes 68980 - PHQ-9 Billing: Yes Source: Developed by Drs. Hay Monae, Marilin Alfaro, Dean Strickland and colleagues, with an educational melonie from Poll Everywhere. Thrive Questionnaire Date Thrive assessed: 06/24/24 I am a: Patient What is your living situation today?: I have a steady place to live Within the past 12 months, did the food you bought not last and you didn't have the money to get more?: Sometimes True Within the past 12 months, did you worry whether your food would run out before you got money to buy more?: Sometimes True Do you have trouble paying for medicines?: No Do you have trouble getting transportation to medical appointments?: No Do you have trouble paying your heating and electricity bill?: No Do you have trouble taking care of your child, family member or friend?: No Do you have trouble with day-to-day activities such as bathing, preparing meals, shopping, managing finances, etc.?: No Are you currently unemployed and looking for a job?: No Are you interested in more education?: No Please select the resources that you would like help with: Utilities Currently or been in a relationship where the following occur: No concerns reported THRIVE Score: 2 AUDIT C Alcohol Use Questionnaire (AUDIT-C) 1. How often do you have a drink containing alcohol?: Never 3. How often do you have six or more drinks on one occasion?: Never Total Score: 0 Score Reviewed/Action Taken: Yes ROSS-7 AMB Questionnaire ROSS-7 Date ROSS - 7 assessed: 06/24/24 Feeling nervous, anxious, or on edge: 1 = Several days Not being able to stop or control worryin = Several days Worrying too much about different things: 2 = More than half the days Trouble relaxin = Not at all Being so restless that it is hard to sit still: 0 = Not at all Becoming easily annoyed or irritable: 1 = Several days Feeling afraid as if something awful might happen: 0 = Not at all Total ROSS-7 score (0-4 normal; 5-9 mild; 10-14 moderate; 15-21 severe): 5 Source: Developed by Drs. Hay Monae, Marilin Alfaro, Dean Strickland and colleagues, with an educational melonie from [employer] Everywhere. ROSS-7 Assessment Billing ROSS-7 Assessment Tool: ROSS-7 Assessment 51449 Physical exam (Primary Care) Vital Signs: Last Vital Signs Temp 98.0 F 06/24/24 12:54 Pulse 84 06/24/24 12:54 BP 120/60 06/24/24 12:54 Pulse Ox 95 06/24/24 12:54 Oxygen Delivery Method Room Air 06/24/24 12:54 BMI result Body Mass Index 24.6 Tobacco/Smoking Status: Tobacco use Status Tobacco use date assessed 06/24/24 06/24/24 12:56 Patient Tobacco Use Status Current everyday Tobacco 06/24/24 12:56 Tobacco use type Cigarette 06/24/24 12:56 e-Cigarette/Vaping Use Never Used 06/24/24 12:56 PHQ-9: PHQ-9 Score PHQ-9: Total score 2 06/24/24 12:56 Depression Screening Interpretation: Negative Thrive Assessment: Date of Thrive Assessment Date Thrive assessed 06/24/24 06/24/24 12:56 Currently or been in a relationship where the following occur: No concerns reported Coding Level of Care Code Est Pt Level 3 (63939) Diagnoses Dyslipidemia E78.5 Skin lesion L98.9 Additional Codes ROSS-7 Assessment Billing - ROSS-7 Assessment Tool: ROSS-7 Assessment 04765 ([id number]) PHQ-9 - 92469 - PHQ-9 Billing: Yes ([id number]) Assessment & Plan Assessment & Plan (1) Dyslipidemia: Code(s): E78.5 - Hyperlipidemia, unspecified Category: Medical (2) Skin lesion: Comment: 20 min reviewing chart eval pt and documenting; referred to derm Code(s): L98.9 - Disorder of the skin and subcutaneous tissue, unspecified Category: Medical Plan . Orders: Orders Lipid Panel Today E78.5 - Hyperlipidemia, unspecified Complete Blood Count Auto Diff Today E78.5 - Hyperlipidemia, unspecified Comprehensive [place]. Panel Fast Today E78.5 - Hyperlipidemia, unspecified TSH reflex Free T4 Today E78.5 - Hyperlipidemia, unspecified UA CC w/rflx Micro + Cult Today E78.5 - Hyperlipidemia, unspecified Referrals Dermatology Referral L98.9 - Disorder of the skin and subcutaneous tissue, unspecified
== END 2024-06-24 13:30 | disposition home or self-care (01) ==
PROVIDERS: PCP Nurse Practitioner Primary Care; Visit Provider Nurse Practitioner Family
DX: E78.5 Hyperlipidemia, unspecified (principal); L98.9 Disorder of the skin and subcutaneous tissue, unspecified

== ENCOUNTER → 2024-06-24 12:51 | Outpatient (BNVA) | payer OTHER, SELFPAY | PROVIDERS: PCP Nurse Practitioner Primary Care; Visit Provider Nurse Practitioner Family | DX: E78.5 Hyperlipidemia, unspecified (principal); L98.9 Disorder of the skin and subcutaneous tissue, unspecified | CPT/HCPCS: 96127 ==

== ENCOUNTER 2024-07-03 07:54 | Outpatient (REF) | payer OTHER, SELFPAY ==
--- OUTSIDE RECORDS SUMMARY | 2024-07-03 07:56 | XMS_ITS | Patient Health Record ---
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 Name Role Phone Emmy MCKENNA, Osmany Primary Care Provider Peter Desouza Jr Unavailable Sundar Dash Unavailable Unavailable ALLERGIES Allergen (clinical drug ingredient) Drug/Non Drug Allergy documented on EMR Reaction Allergy Type Onset Date Status penicillin G Penicillin G Sodium Unknown Drug Allergy Active REASON FOR REFERRAL No Information MEDICATIONS Medication SIG (Take, Route, Fr equency, Duration) Notes Start Date End Date Status KlonoPIN 0.5 MG 1 tablet at bedtime Orally Once a day Active Tylenol 325 MG 1 tablet as needed O rally every 4 hrs/prn Active Zoloft 25 MG Orally Active Diclofenac Active Famotidine 20 MG 1 tablet Orally Twic e a day for 30 day(s) 08/07/2020 Active Vitamin D3 Active IMMUNIZATIONS Vaccine Route Administration Date Status Comme nts Influenza Unknown 01/16/2019 Administered Influenza Unknown 03/04/2020 Administered Influenza Unknown 02/06/2019 Refused SOCIAL HISTORY Tobacco Use: Social History Observation Description Date Details (start date - stop date) Current Smoker NA - NA Sex Assigned At : Social History Observation Description Sex Assigned At Unknown Tobacco Use/Smoking Question Answer Notes Patient is a current smoker How often do you smoke cigarettes? every day How many cigarettes a day do you smoke? 11-20 How soon after you wake up do you smoke your fir st cigarette? 6-30 minutes Are you interested in quitting? Ready to quit Alcohol Screen Question Answer Notes Did you have a drink containing alcohol in the p ast year? No Points 0 Interpretation Negative PROBLEMS Problem Type ICD Code Onset Dates Problem Status W/U Status Risk SNOMED Code Notes Problem Chronic hepatitis C without hepatic coma (B18.2) Active confirmed [id number] Problem GERD without esophagitis (K21.9) Active confirmed 926033984 Problem Dysphagia, unspecified type (R13.10) Active confirmed 97008333 PLAN OF TREATMENT Pending Test Test Name Order Date LIVER PROFILE 02/19/2019 CBC w/o DIFF 02/19/2019 HEPATITIS C VIRAL LOAD 11/08/2019 HEPATITIS C VIRAL LOAD 02/19/2019 HEPATITIS C VIRAL LOAD 04/08/2019 XR GI SERIES 07/29/2020 Insurance Providers Payer Name Payer Address Payer Phone Subscriber Number Group Number Insured Name Patient Relationship to Insured Coverage Start Date Coverage End Date [facility] [address] [address] [place], [place] [id number] ROCHELLE CHINO Self - patient is the insured MEDICAL (GENERAL) HISTORY Medical History History ICD Code pancytopenia, evaluated by hematology. PTSD back pain colonoscopy in 02/07, hyperplastic polyps , ten-year followup 02/17 Anxiety disorder Surgical History Surgery Date(Month/Year) appendectomy
[2024-07-03 10:37] LABS: Appearance Urine Clear; Color Urine Yellow; Glucose Urine UA Negative (Negative); Leukocyte Esterase Urine Negative (Negative); Nitrite Urine Negative (Negative); PH 6.5 (5.0-9.0); Specific Gravity - Urine 1.025 (1.005-1.025); Urine Blood Negative (Negative); Urine Ketones Negative (Negative); Urine Protein Negative (Neg-Trace)
[2024-07-03 10:45] LABS: MANUAL DIFF FLAG NO
[2024-07-03 10:56] LABS: Basophils Percent Auto 0.3 % (0-2); Eosinophils Absolute Auto 0.1 X10*3/uL (0.0-0.4); Hematocrit 40.3 % (37.0-47.0); Hemoglobin 13.6 g/dl (12.0-16.0); Imm Gran Abs Auto 0.02 X10*3/uL (0.00-0.03); Imm Gran Pct Auto 0.3 % (0.0-0.4); Lymphocytes Percent Auto 45.4 % (20-40); Mean Corpuscular HGB Conc 33.7 g/dl (31.0-35.0); Mean Corpuscular Hemoglobin 32.7 pg (27.0-33.0); Mean Corpuscular Volume 96.9 fL (80.0-98.0); Mean Platelet Volume 13.3 fL (9.4-12.3); Monocytes Absolute Auto 0.6 X10*3/uL (0.1-1.2); Monocytes Percent Auto 8.9 % (2-11); Neutrophils Absolute Auto 2.8 x10*3/uL (2.0-8.3); Neutrophils Percent Auto 43.1 % (45-73); Platelet Count 168 X10*3/uL (160-400); Red Blood Count 4.16 X10*6/uL (4.20-5.50); Red Cell Distribution Width 14.3 % (11.0-16.0); White Blood Count 6.5 X10*3/uL (4.8-10.8)
[2024-07-03 11:32] LABS: Alanine Aminotransferase 13 U/L (0-31); Albumin Level 4.4 g/dL (3.5-5.0); Alkaline Phosphatase 73 U/L (39-117); Anion Gap 11 (12-20); Aspartate Amino Transferase 18 U/L (5-31); Bilirubin Total 0.6 mg/dL (0.0-1.0); Blood Urea Nitrogen 23 mg/dL (9-16); Calcium 9.5 mg/dL (8.4-10.2); Carbon Dioxide 25 mmol/L (22-29); Chloride 110 mmol/L (96-108); Cholesterol 196 mg/dL (<200); Estimated Glomerular Filt Rate 54; Glucose Fasting 90 mg/dL (60-99); HDL Cholesterol 68 mg/dL (>40); LDL Cholesterol Calculated 108 mg/dL (<100); Sodium 142 mmol/L (135-145); TSH reflex Free T4 2.81 uIU/mL (0.32-4.0); Total Protein 7.6 g/dL (6.5-8.0); Triglycerides 101 mg/dL (<150)
== END 2024-07-03 07:55 | disposition home or self-care (01) ==
LOC: HO.HMGCLDS 07:54
PROVIDERS: PCP Nurse Practitioner Family; Visit Provider Nurse Practitioner Family
DX: E78.5 Hyperlipidemia, unspecified (principal)
CPT/HCPCS: 36415; 80053; 80061; 81003; 84443; 85025

== ENCOUNTER 2024-09-05 05:00 | Outpatient (REF) | payer OTHER, SELFPAY ==
[2024-09-10 22:08] LABS: N-Telopeptide 18 (see note); NTXCreaRU 56 mg/dL (20-275)
== END 2024-09-05 05:01 | disposition home or self-care (01) ==
LOC: HO.HMGCLNP 05:00
PROVIDERS: Visit Provider Internal Medicine Endocrinology, Diabetes & Metabolism
DX: M81.0 Age-related osteoporosis without current pathological fracture (principal)
CPT/HCPCS: 82523

== ENCOUNTER 2024-09-16 13:45 | Outpatient (AMB) | payer MEDICARE, SELFPAY ==
[2024-09-16 13:51] VITALS: BP 148/72; PULSE 76; O2SAT 95; BMI 24.2
--- NOTE | 2024-09-16 13:51 | MHC.OFFVIS ---
Vital Signs 09/16/24 13:51 Height 5 ft 1 in Weight 127 lb 13.89 oz BMI 24.2 BP 148/72 H Blood Pressure Location Rt brachial Position Sitting Pulse 76 Pulse Source Pulse Oximeter Pulse Oximetry (%) 95 Oxygen Delivery Method Room Air Intake Visit Reasons: Osteoporosis Intake Note: Patient present today for age-related Osteoporosis follow up. 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 First diagnosed in 1 mo ago . Not Received treatment in the past No history of pathologic fracture or ONJ. Has several servings of dietary calcium per day in the form of milk, yogurt . Not Takes Calcium supplement [] mg daily in divided doses. Takes 1000 IU of Vitamin D daily. Denies ever using PPI, anticoagulant, antiepileptic not taking glucocorticoid medication. Not Does weight bearing exercise Fracture history: No Height loss: No DIRECTOR [employer] history: Menopause at age 41 . Menarche at age 14 - nl menses Denies history of Kidney stones: Denies family history of Osteoporosis or hip fracture. UTD on dental cleanings and sees dentist every 6 months. Just had implants No planned upcoming dental work or extractions. Smoked 1 ppd DXA dated 09/14/23:FINDINGS: LEFT FEMUR, NECK: BMD 0.706 g/cm2, Z-score -0.6, T-score -2.4, osteopenia. LEFT FEMUR, TOTAL: BMD 0.755 g/cm2, Z-score -0.5, T-score -2.0, osteopenia. AP SPINE L1-L4: BMD 0.848 g/cm2, Z-score -0.8, T-score -2.8, osteoporosis. IDENTIFIED RISK FACTORS: Early menopause, secondary osteoporosis, tobacco use (current smoker). HISTORY OF FRACTURE: None listed. MEDICATIONS: Vitamin D. MM/XR DEXA axial skeleton IMPRESSION: 1. DIAGNOSIS: Osteoporosis based on the lowest T-score va Labs: Was prescribed alendronate 03/2024. Urine NTX is suppressed The patient is a 69-year-old female presenting with concerns related to osteoporosis management. Her bone density shows borderline osteoporosis, and while there has been no recent increase in bone turnover markers, smoking and past prednisone use are contributing factors. She admits to not having initiated alendronate therapy despite prior recommendations. She is currently not taking prednisone. The patient reports occasional back pain possibly due to arthritis, and she finds relief with [id number]-[id number] medications such as Advil and Tylenol. [facility] Medical History (Updated 06/24/24 @ 13:16 by SARAH Reid-JD) Hiatal hernia History of hepatitis C Pancytopenia Osteoporosis Dyslipidemia Hyperplastic colon polyp Nicotine dependence, cigarettes, uncomplicated Depression Anxiety Insomnia Surgical History History of colonoscopy History of tonsillectomy History of appendectomy History of tubal ligation History of elbow surgery History of shoulder surgery Family History (Reviewed 06/24/24 @ 12:56 by Moises Figueroa, [facility] [address]) Father Medical history unknown Mother Medical history unknown Mother Dementia Diabetes Social History Housing: House Alcohol intake: former Patient Tobacco Use Status: Current everyday Tobacco user Tobacco use type: Cigarette Cigarette Packs Per Day: 1 Cigarettes Per Day: 20 Years Smoked: onset 18yo, 1ppd x 50yrs, 50pyh e-Cigarette/Vaping Use: Never Used Second Hand Smoke Exposure: No service: No Current occupational status: disabled Cognitive needs: No Hearing needs: Yes Vision needs: No Assessment & Plan Assessment & Plan (1) Osteoporosis: Comment: (Bone Dexa Lumbar T-score: -2.8 on 09/14/23) Code(s): M81.0 - Age-related osteoporosis without current pathological fracture Category: Medical Qualifiers: Osteoporosis type: unspecified Presence of current pathological fracture: unspecified Qualified Code(s): M81.0 - Age-related osteoporosis without current pathological fracture Plan: This 69-year-old white female with a history of osteoporosis currently on steroids. Complete secondary workup was negative. Was prescribed alendronate in 03/2024. Urine NTX is suppressed 1. Osteoporosis We will start alendronate therapy to manage the patient's osteoporosis, despite previously borderline bone density levels. Instructions on proper administration were provided to enhance efficacy and prevent fractures. 2. Smoking Advised smoking cessation to improve bone health and decrease osteoporosis risks. Suggested considering behavioral changes to facilitate cessation. The patient had an opportunity to ask questions regarding treatment plan. We will recheck urine NTX in 6 months I discussed with the patient the initiation of alendronate for her osteoporosis and provided detailed administration instructions. The benefits, such as fracture prevention, were highlighted. I also discussed the significant health risks associated with smoking and encouraged cessation, emphasizing its impact on bone health. A follow-up urine test will be conducted six months after starting alendronate, with a subsequent appointment to review any changes. I discussed with the patient the initiation of alendronate for her osteoporosis and provided detailed administration instructions. The benefits, such as fracture prevention, were highlighted. I also discussed the significant health risks associated with smoking and encouraged cessation, emphasizing its impact on bone health. A follow-up urine test will be conducted six months after starting alendronate, with a subsequent appointment to review any changes. The patient expressed understanding and agreement with the above treatment plan. Patient was informed and verbally consented to the use of an ambient scribe for clinic note documentation during this visit. Orders: Orders Collagen Crosslinks NTX 6 Months M81.0 - Age-related osteoporosis without current pathological fracture Coding Level of Care Code Est Pt Level 3 (45231) Diagnoses Osteoporosis, unspecified osteoporosis type, unspecified pathological fracture presence M81.0 Osteoporosis type: unspecified Presence of current pathological fracture: unspecified
== END 2024-09-16 14:07 | disposition home or self-care (01) ==
LOC: HO.ENCR 13:45
PROVIDERS: PCP Internal Medicine; Visit Provider Internal Medicine Endocrinology, Diabetes & Metabolism
DX: M81.0 Age-related osteoporosis without current pathological fracture (principal)
CPT/HCPCS: 99213

== ENCOUNTER → 2024-09-16 13:45 | Outpatient (BNVA) | payer MEDICARE, OTHER, SELFPAY | PROVIDERS: PCP Internal Medicine; Visit Provider Internal Medicine Endocrinology, Diabetes & Metabolism | DX: M81.0 Age-related osteoporosis without current pathological fracture (principal) | CPT/HCPCS: 99212 ==

== ENCOUNTER 2024-09-26 13:44 | Outpatient (REF) | payer MEDICARE, OTHER, SELFPAY ==
[2024-10-02 11:42] LABS: HPV Genotype 16 Negative (Negative); HPV Genotype 18 Negative (Negative); HPV High Risk Negative (Negative)
== END 2024-09-26 13:45 | disposition home or self-care (01) ==
LOC: HO.LNP 13:44
PROVIDERS: PCP Nurse Practitioner Family; Visit Provider Obstetrics & Gynecology
DX: Z01.419 Encounter for gynecological examination (general) (routine) without abnormal findings (principal); R23.2 Flushing; Z78.0 Asymptomatic menopausal state; Z98.51 Tubal ligation status
CPT/HCPCS: 87626; 88175; 99397; 99459

== ENCOUNTER 2024-09-26 13:44 | Outpatient (AMB) | payer MEDICARE, MEDICAID, SELFPAY ==
--- NOTE | 2024-09-26 13:49 | A.OFFVIS_ITS ---
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 No complaints. The patient was switched to citalopram for generalized anxiety disorder by her psychiatrist and seems to be controlling her hot flash Last Pap/HPV were negative in 12/05 Last Mammogram was BI-RADS 1 in 05/14 Last Colonoscopy according to the patient was done 6 years ago, the recommendation was to repeat in 10 years Last DEXA scan was in 09/12 T-score was minus -2.8 the patient was started on alendronate [facility] Medical History Hiatal hernia History of hepatitis C Pancytopenia Osteoporosis Dyslipidemia Hyperplastic colon polyp Nicotine dependence, cigarettes, uncomplicated Depression Anxiety Insomnia Surgical History History of colonoscopy History of tonsillectomy History of appendectomy History of tubal ligation History of elbow surgery History of shoulder surgery Family History Father Medical history unknown Mother Medical history unknown Mother Dementia Diabetes Social History Housing: House Alcohol intake: former Patient Tobacco Use Status: Current everyday Tobacco user Tobacco use type: Cigarette Cigarette Packs Per Day: 1 Cigarettes Per Day: 20 Years Smoked: onset 18yo, 1ppd x 50yrs, 50pyh e-Cigarette/Vaping Use: Never Used Second Hand Smoke Exposure: No service: No Current occupational status: disabled Cognitive needs: No Hearing needs: Yes Vision needs: No Review of Systems Const All systems reviewed & are unremarkable except as noted in HPI and below Card Reports as per HPI Resp Reports as per HPI GI Reports as per HPI and Reports no additional complaints Reports as per HPI Physical Exam Const General: cooperative, healthy appearing and comfortable Chest Chest palpation & inspection: normal inspection of the chest and normal palpation of entire chest wall Breast/axilla inspection: normal inspection of the breasts and normal inspection of the axillae Breast/axilla palpation: normal palpation of the breasts, normal palpation of the axillae and no axillary lymphadenopathy Resp Effort & Inspection: normal respiratory effort Auscultation: clear to auscultation bilaterally Percussion: percussion normal Cardio Palpation: normal PMI Rate: regular rate Rhythm: regular rhythm Heart sounds: no murmurs and no rubs Peripheral pulses: Peripheral pulses 2+ throughout GI Inspection: Yes normal to inspection Palpation (GI): Soft to palpation, nontender, no guarding, not rigid and No hepatosplenomegaly present Percussion: Yes normal to percussion Auscultation: normal bowel sounds Rectal Exam - Female: deferred General: Yes bladder normal to palpation External Female Exam: No lesion Speculum Exam - Vagina: normal appearance of the vagina, normal palpation, normal vaginal discharge and not erythematous Speculum Exam - Cervix: normal appearance of the cervix and normal palpation Bimanual exam- vagina & uterus: normal bimanual exam, normal palpation, uterine size normal, bladder normal to palpation, consistency normal and normal palpation Bimanual Exam- Adnexa, other: normal adnexae, no masses and no tenderness Assessment & Plan Assessment & Plan (1) Well woman exam: Code(s): Z01.419 - Encounter for gynecological examination (general) (routine) without abnormal findings Category: Medical Plan: Co testing not indicated since the patient 's age is above 65 with no history of abnormal Pap smears last 25 years, adequately screen for the last 10 years with no history of immunosuppression. Counseled the patient about the recommended dietary allowance of 1200 mg of Calcium & 800 IU of vitamin D. Instructions given the patient to schedule next screening Mammogram in 05/15. The patient was instructed to perform monthly self-breast exams and to schedule an annual exam in a year; All questions answered and the patient verbalized understanding. (2) Hot flashes: Code(s): R23.2 - Flushing Category: Medical Plan: Recommended for the patient to stay on citalopram 20 mg p.o. q.d. Coding Level of Care Code Est Pt Prev Care >65y(24927) Diagnoses Well woman exam Z01.419 Hot flashes R23.2
[2024-09-26 13:52] VITALS: BP 130/60
--- OUTSIDE RECORDS SUMMARY | 2024-09-26 14:41 | XMS_ITS | Patient Health Record ---
Author Organization [facility] Address [address] [place] [address] Care Team Providers Care Devops Engineer Name Role Phone Emmy MCKENNA, Osmany Primary Care Provider Peter Desouza Jr Unavailable Sundar Dash Unavailable Unavailable Allergies Allergen (clinical drug ingredient) Drug/Non Drug Allergy documented on EMR Reaction Allergy Type Onset Date Status penicillin G Penicillin G Sodium Unknown Drug Allergy Active Reason For Referral No Information Medications Medication SIG (Take, Route, Fr equency, Duration) Notes Start Date End Date Status KlonoPIN 0.5 MG 1 tablet at bedtime Orally Once a day Active Tylenol 325 MG 1 tablet as needed O rally every 4 hrs/prn Active Zoloft 25 MG Orally Active Diclofenac Active Famotidine 20 MG 1 tablet Orally Twic e a day for 30 day(s) 08/07/2020 Active Vitamin D3 Active Immunizations Vaccine Route Administration Date Status Comme nts Influenza Unknown 01/16/2019 Administered Influenza Unknown 03/04/2020 Administered Influenza Unknown 02/06/2019 Refused Social History Tobacco Use: Social History Observation Description Date Details (start date - stop date) Current Smoker NA - NA Tobacco Use/Smoking Question Answer Notes Patient is [...] ast year? No Points 0 Interpretation Negative Problems Problem Type SNOMED Code ICD Code Onset Dates Problem Status W/U Status Risk Notes Problem 959485774 Chronic hepatitis C without hepatic coma (B18.2) Active confirmed Problem 10443295 Dysphagia, unspecified type (R13.10) Active confirmed Problem 648457849 GERD without esophagitis (K21.9) Active confirmed Plan Of Treatment Pending Test Test Name Order Date LIVER PROFILE 02/19/2019 CBC w/o DIFF 02/19/2019 HEPATITIS C VIRAL LOAD 02/19/2019 HEPATITIS C VIRAL LOAD 11/08/2019 HEPATITIS C VIRAL LOAD 04/08/2019 XR GI SERIES 07/29/2020 Insurance Providers Payer Name Payer Address Payer Phone Subscriber Number Group Number Insured Name Patient Relationship to Insured Coverage Start Date Coverage End Date [facility] [employer] [facility] [address] [address] [place], [place] [id number] ROCHELLE CHINO Self - patient is the insured Medical (General) History Medical History History ICD Code pancytopenia, evaluated by hematology. PTSD back pain colonoscopy in 02/07, hyperplastic polyps , ten-year followup 02/17 Anxiety disorder Surgical History Surgery Date(Month/Year) appendectomy
== END 2024-09-26 14:09 | disposition home or self-care (01) ==
PROVIDERS: PCP Nurse Practitioner Family; Visit Provider Obstetrics & Gynecology
DX: Z01.419 Encounter for gynecological examination (general) (routine) without abnormal findings (principal); R23.2 Flushing
CPT/HCPCS: 99397; 99459

== ENCOUNTER 2024-10-07 07:54 | Outpatient (REF) | payer MEDICARE, MEDICAID, SELFPAY ==
--- OUTSIDE RECORDS SUMMARY | 2024-10-07 07:56 | XMS_ITS | Patient Health Record ---
Author Organization [facility] Address [address] [place] [address] Care Team Providers Care Lasting Room Machine Operator Name Role Phone Emmy MCKENNA, Osmany Primary Care Provider Peter Desouza Jr Unavailable [phone] Sundar Dash Unavailable Unavailable Allergies Allergen (clinical [...] Problem Status W/U Status Risk Notes Problem [id number] Chronic hepatitis C without hepatic coma (B18.2) Active confirmed Problem 39917037 Dysphagia, unspecified type (R13.10) Active confirmed Problem 907289537 GERD without esophagitis (K21.9) Active confirmed Plan [...] Insured Coverage Start Date Coverage End Date [facility] [employer] [facility] [address] [address] [place], [place] [id number] ROCHELLE CHINO Self - patient is the insured Medical (General) History Medical History History ICD Code pancytopenia, evaluated by hematology. PTSD back pain colonoscopy in 02/07, hyperplastic polyps , ten-year followup 02/17 Anxiety disorder Surgical History Surgery Date(Month/Year) appendectomy
[2024-10-07 10:14] LABS: MANUAL DIFF FLAG NO
[2024-10-07 10:37] LABS: Basophils Percent Auto 0.4 % (0-2); Eosinophils Absolute Auto 0.1 X10*3/uL (0.0-0.4); Eosinophils Percent Auto 1.6 % (0-4); Hematocrit 42.8 % (37.0-47.0); Hemoglobin 14.3 g/dl (12.0-16.0); Imm Gran Abs Auto 0.02 X10*3/uL (0.00-0.03); Imm Gran Pct Auto 0.3 % (0.0-0.4); Lymphocytes Absolute Auto 2.8 X10*3/uL (1.2-4.9); Lymphocytes Percent Auto 36.4 % (20-40); Mean Corpuscular HGB Conc 33.4 g/dl (31.0-35.0); Mean Corpuscular Hemoglobin 32.2 pg (27.0-33.0); Mean Corpuscular Volume 96.4 fL (80.0-98.0); Mean Platelet Volume 12.2 fL (9.4-12.3); Monocytes Absolute Auto 0.6 X10*3/uL (0.1-1.2); Monocytes Percent Auto 8.3 % (2-11); Neutrophils Absolute Auto 4.1 x10*3/uL (2.0-8.3); Platelet Count 219 X10*3/uL (160-400); Red Blood Count 4.44 X10*6/uL (4.20-5.50); Red Cell Distribution Width 14.1 % (11.0-16.0); White Blood Count 7.7 X10*3/uL (4.8-10.8)
[2024-10-07 10:45] LABS: Appearance Urine Clear; Color Urine Yellow; Glucose Urine UA Negative (Negative); Leukocyte Esterase Urine Small (1+) (Negative); Nitrite Urine Negative (Negative); PH 7.5 (5.0-9.0); Specific Gravity - Urine 1.015 (1.005-1.025); UMIC TRIGGER UACC YES; Urine Blood Negative (Negative); Urine Ketones Negative (Negative); Urine Protein Negative (Neg-Trace)
[2024-10-07 10:58] LABS: Bacteria Urine Trace (None Seen); Hyaline Casts Urine 0-2 /LPF (0-2); RBC Urine 0-2 /HPF (0-2); UACC Culture Trigger YES; WBC Urine 0-5 /HPF (0-5)
[2024-10-07 11:20] LABS: Alanine Aminotransferase 11 U/L (0-31); Albumin Level 4.6 g/dL (3.5-5.0); Alkaline Phosphatase 73 U/L (39-117); Anion Gap 11 (12-20); Aspartate Amino Transferase 20 U/L (5-31); Bilirubin Total 0.9 mg/dL (0.0-1.0); Blood Urea Nitrogen 21 mg/dL (9-16); Calcium 9.6 mg/dL (8.4-10.2); Carbon Dioxide 28 mmol/L (22-29); Chloride 107 mmol/L (96-108); Cholesterol 208 mg/dL (<200); Estimated Glomerular Filt Rate 59; Glucose Fasting 89 mg/dL (60-99); HDL Cholesterol 76 mg/dL (>40); LDL Cholesterol Calculated 118 mg/dL (<100); Potassium 4.3 mmol/L (3.3-5.1); Sodium 142 mmol/L (135-145); Total Protein 7.5 g/dL (6.5-8.0); Triglycerides 71 mg/dL (<150)
[2024-10-07 11:22] LABS: TSH reflex Free T4 2.41 uIU/mL (0.32-4.0); Vitamin D 25-OH Total 72.8 ng/mL (>30)
== END 2024-10-07 07:55 | disposition home or self-care (01) ==
LOC: HO.HMGCLDS 07:54
PROVIDERS: PCP Nurse Practitioner Family; Visit Provider Nurse Practitioner Family
DX: E78.5 Hyperlipidemia, unspecified (principal); E55.9 Vitamin D deficiency, unspecified; R82.90 Unspecified abnormal findings in urine
CPT/HCPCS: 36415; 80053; 80061; 81001; 82306; 84443; 85025; 87086

== ENCOUNTER 2024-12-19 07:02 | Outpatient (REF) | payer MEDICARE, MEDICAID, SELFPAY ==
[2024-12-19 10:35] LABS: Alanine Aminotransferase 16 U/L (0-31); Albumin Level 4.6 g/dL (3.5-5.0); Alkaline Phosphatase 71 U/L (39-117); Anion Gap 12 (12-20); Aspartate Amino Transferase 19 U/L (5-31); Blood Urea Nitrogen 26 mg/dL (9-16); Calcium 9.7 mg/dL (8.4-10.2); Carbon Dioxide 26 mmol/L (22-29); Chloride 108 mmol/L (96-108); Cholesterol 136 mg/dL (<200); Estimated Glomerular Filt Rate 56; HDL Cholesterol 69 mg/dL (>40); Potassium 3.9 mmol/L (3.3-5.1); Sodium 142 mmol/L (135-145); Total Protein 7.2 g/dL (6.5-8.0); Triglycerides 49 mg/dL (<150)
== END 2024-12-19 07:03 | disposition home or self-care (01) ==
LOC: HO.HMGCLDS 07:02
PROVIDERS: PCP Nurse Practitioner Family; Visit Provider Nurse Practitioner Family
DX: E78.5 Hyperlipidemia, unspecified (principal)
CPT/HCPCS: 36415; 80053; 80061

== ENCOUNTER 2025-02-11 12:35 | Outpatient (REF) | payer MEDICARE, MEDICAID, SELFPAY ==
--- NOTE | ~2025-02-11 | CT_ITS ---
CLINICAL HISTORY: F17.210 - Nicotine dependence, cigarettes, uncomplicated CT lung cancer screening (LDCT) Comparison: CT/CO/SR - CT LUNG SCREENING - 12/15/23 10:04 EDT Technique: Axial CT images of the chest using low-dose technique. Referring provider counseled the patient on shared decision-making for LDCT screening. Additional counseling was provided on smoking cessation. Effective radiation dose total: DLP 22.9 mGycm, CTDIvol 0.7 mGy. Findings: There is mild centrilobular and paraseptal emphysema. Previously seen and previously described pulmonary nodules are unchanged. Small Bochdalek's hernia seen at the left medial lung base. There are mild coronary artery calcifications. Limited upper abdomen: Unremarkable Other: None IMPRESSION: LungRADS 2 - Benign Appearance: Continue annual screening with low dose Chest CT in 12 months. ##L2# This document has been electronically signed by: Júnior Beckman MD on 02/12/2025 11:24:44
--- OUTSIDE RECORDS SUMMARY | 2025-02-11 15:31 | XMS_ITS | Patient Health Record ---
Author Organization [facility] Address [address] [place] [address] Care Team Providers Care Senior Merchandiser Name Role Phone Emmy MCKENNA, Osmany Primary Care Provider Peter Desouza Jr Unavailable [phone] Sundar Dash Unavailable Unavailable Allergies Allergen [...] Problem Status W/U Status Risk Notes Problem 265238489 Chronic hepatitis C without hepatic coma (B18.2) Active confirmed Problem 49959634 Dysphagia, unspecified type (R13.10) Active confirmed Problem 321799170 GERD without esophagitis (K21.9) Active confirmed Plan [...] Insured Coverage Start Date Coverage End Date [facility] [employer] [facility] [address] [address] [place], [place] [id number] ROCHELLE CHINO Self - patient is the insured Medical (General) History Medical History History ICD Code pancytopenia, evaluated by hematology. PTSD back pain colonoscopy in 02/07, hyperplastic polyps , ten-year followup 02/17 Anxiety disorder Surgical History Surgery Date(Month/Year) appendectomy
== END 2025-02-11 12:36 | disposition home or self-care (01) ==
LOC: HO.CT 12:35
PROVIDERS: Visit Provider Physician Assistant Medical
DX: Z12.2 Encounter for screening for malignant neoplasm of respiratory organs (principal); F17.210 Nicotine dependence, cigarettes, uncomplicated
CPT/HCPCS: 71271

== ENCOUNTER → 2025-02-11 12:37 | Outpatient (BNV) | payer MEDICARE, MEDICAID, SELFPAY | PROVIDERS: Visit Provider Radiology Diagnostic Radiology | DX: Z12.2 Encounter for screening for malignant neoplasm of respiratory organs (principal); Z87.891 Personal history of nicotine dependence | CPT/HCPCS: 71271 ==

== ENCOUNTER 2025-04-11 08:02 | Outpatient (REF) | payer MEDICARE, MEDICAID, SELFPAY ==
--- OUTSIDE RECORDS SUMMARY | 2025-04-11 08:05 | XMS_ITS | Patient Health Record ---
Author Organization [facility] Address [address] [place] [address] Care Team Providers Care Chief Engineer Research Name Role Phone Emmy MCKENNA, Osmany Primary Care Provider Peter Desouza Jr Unavailable [phone] Sundar Dash Unavailable Unavailable Allergies Allergen (clinical drug ingredient) Drug/Non Drug Allergy documented on EMR Reaction Allergy Type Onset Date Status penicillin G Penicillin G Sodium Unknown Drug Allergy Active Reason For Referral No Information Medications Medication SIG (Take, Route, Fr equency, Duration) Notes Start Date End Date Status KlonoPIN 0.5 MG Tablet 1 tablet at bedti me Orally Once a day Active Tylenol 325 MG Tablet 1 tablet as needed Orally every 4 hrs/prn Active Zoloft 25 MG Tablet Orally Active Diclofenac Active Famotidine 20 MG Tablet 1 tablet Orally Twice a day; Duration: 30 day(s) 08/07/2020 Active Vitamin D3 Active Immunizations Vaccine Route Administration Date Status Comme nts Influenza Unknown 01/16/2019 Administered Influenza Unknown 02/06/2019 Refused Influenza Unknown 03/04/2020 Administered Social History Tobacco Use: Social History Observation Description Date Details (start date - stop date) Current Smoker NA - NA Social History Drugs/Alcohol: Social Info Question Answer Notes Alcohol Screen Did you have a drink containing alcohol in the past year? No Points 0 Interpretation Negative Tobacco Use: Social Info Question Answer Notes Tobacco Use/Smoking Patient is a current smoker How often do you smoke cigarettes? every day How many cigarettes a day do you smoke? 11-20 How soon after you wake up do you smoke your first cigarette? 6-30 minutes Are you interested in quitting? 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 Problems Problem Type SNOMED Code ICD Code Onset Dates Problem Status W/U Status Risk Notes Problem Chronic hepatitis C (738054666) Chronic hepatitis C without hepatic coma (B18.2) Active confirmed Problem Dysphagia (73531224) Dysphagia, unspecified type (R13.10) Active confirmed Problem Gastroesophageal reflux disease (979028741) GERD without esophagitis (K21.9) Active confirmed Plan [...] Insured Coverage Start Date Coverage End Date [facility] [address] [address] [place], [place] [id number] ROCHELLE CHINO Self - patient is the insured Medical (General) History Medical History History ICD Code pancytopenia, evaluated by hematology. PTSD back pain colonoscopy in 02/07, hyperplastic polyps , ten-year followup 02/17 Anxiety disorder Surgical History Surgery Date(Month/Year) appendectomy
[2025-04-11 09:58] LABS: MANUAL DIFF FLAG NO
[2025-04-11 10:16] LABS: Hematocrit 42.1 % (37.0-47.0); Hemoglobin 14.3 g/dl (12.0-16.0); Imm Gran Abs Auto 0.01 X10*3/uL (0.00-0.03); Imm Gran Pct Auto 0.2 % (0.0-0.4); Lymphocytes Absolute Auto 2.7 X10*3/uL (1.2-4.9); Mean Corpuscular HGB Conc 34.0 g/dl (31.0-35.0); Mean Corpuscular Hemoglobin 32.6 pg (27.0-33.0); Mean Corpuscular Volume 96.1 fL (80.0-98.0); NRBC Abs Auto 0.000 X10*3/uL (0.0-0.012); NRBC Pct Auto 0.0 /100WBC (0.0-0.2); Platelet Count 177 X10*3/uL (160-400); Red Blood Count 4.38 X10*6/uL (4.20-5.50); White Blood Count 6.4 X10*3/uL (4.8-10.8)
[2025-04-11 10:54] LABS: Alanine Aminotransferase 23 U/L (0-31); Albumin Level 4.7 g/dL (3.5-5.0); Alkaline Phosphatase 76 U/L (39-117); Anion Gap 9 (12-20); Aspartate Amino Transferase 20 U/L (5-31); Blood Urea Nitrogen 21 mg/dL (9-16); Calcium 9.9 mg/dL (8.4-10.2); Carbon Dioxide 27 mmol/L (22-29); Chloride 110 mmol/L (96-108); Cholesterol 151 mg/dL (<200); Estimated Glomerular Filt Rate > 60; HDL Cholesterol 76 mg/dL (>40); Potassium 4.1 mmol/L (3.3-5.1); Sodium 142 mmol/L (135-145); Total Protein 7.3 g/dL (6.5-8.0); Triglycerides 78 mg/dL (<150)
== END 2025-04-11 08:03 | disposition home or self-care (01) ==
LOC: HO.HMGCLDS 08:02
PROVIDERS: PCP Nurse Practitioner Family; Visit Provider Nurse Practitioner Family
DX: E78.5 Hyperlipidemia, unspecified (principal); E55.9 Vitamin D deficiency, unspecified
CPT/HCPCS: 36415; 80053; 80061; 82306; 84443; 85025

== ENCOUNTER 2025-04-12 10:50 | Outpatient (REF) | payer MEDICARE, MEDICAID, SELFPAY ==
--- OUTSIDE RECORDS SUMMARY | 2025-04-12 10:54 | XMS_ITS | Patient Health Record ---
Author Organization [facility] Address [address] [place] [address] Care Team Providers Care Land Developer Name Role Phone Emmy MCKENNA, Osmany Primary [...] Status Risk Notes Problem Chronic hepatitis C (258526952) Chronic hepatitis C without hepatic coma (B18.2) Active confirmed Problem Dysphagia (99537914) Dysphagia, unspecified type (R13.10) Active confirmed Problem Gastroesophageal reflux disease (518303510) GERD without esophagitis (K21.9) Active confirmed Plan [...] Insured Coverage Start Date Coverage End Date [facility] [address] [address] [place], [place] [id number] ROCHELLE CHINO Self - patient is the insured Medical (General) History Medical History History ICD Code pancytopenia, evaluated by hematology. PTSD back pain colonoscopy in 02/07, hyperplastic polyps , ten-year followup 02/17 Anxiety disorder Surgical History Surgery Date(Month/Year) appendectomy
[2025-04-12 13:31] LABS: Appearance Urine Clear; Glucose Urine UA Negative (Negative); PH 6.5 (5.0-9.0); Specific Gravity - Urine 1.020 (1.005-1.025)
== END 2025-04-12 10:51 | disposition home or self-care (01) ==
LOC: HO.HMGCLNP 10:50
PROVIDERS: PCP Nurse Practitioner Family; Visit Provider Nurse Practitioner Family
DX: E78.5 Hyperlipidemia, unspecified (principal)
CPT/HCPCS: 81003

== ENCOUNTER 2025-04-15 14:43 | Outpatient (AMB) | payer MEDICARE, MEDICAID, SELFPAY ==
[2025-04-15 15:13] VITALS: BP 158/80; PULSE 73; RESP 16; O2SAT 95; BMI 24.4
--- NOTE | 2025-04-15 15:13 | A.OFFPC_ITS ---
Vital Signs 04/15/25 15:13 Height 5 ft 1 in Weight 129 lb BMI 24.4 BP 158/80 H Blood Pressure Location Lt brachial Position Sitting Respiration 16 Pulse 73 Pulse Source Pulse Oximeter Pulse Oximetry (%) 95 Oxygen Delivery Method Room Air Intake Visit Reasons: Annual PE Wood Turning Lathe Operator Required: No Accompanied by: Self / Same As Patient Allergies Penicillins Allergy (Mild, Verified 04/15/25 16:04) N/V Medication List - Last Reconciled 04/15/25 by SARAH Reid- atorvastatin 10 mg PO BEDTIME budesonide-formoterol 160-4.5 mcg/actuation (Symbicort) 2 puffs inhalation Q12H cholecalciferol (vitamin D3) (Vitamin D3) 25 mcg PO DAILY citalopram mg PO DAILY melatonin mg PO trazodone mg PO Tobacco use date assessed: 04/15/25 Fall risk assessment: No Falls in past year Last assessed Fall Risk: 04/15/25 Dental Screening Dental Screen Date: 04/15/25 Did you have a dental visit in the last 12 months?: Yes Did you have a dental problem in the last 6 months where you did not have access to dental care?: No Was dental information given to patient?: Patient has dentist HPI Annual PE HPI Details History of Present Illness The patient is a 69 year old individual presenting for a physical exam. The patient continues to smoke and is enrolled in a low-dose CT scan program. The patient's in July, and the patient reports being teary- eyed at times but is doing well and is not seeing a grief counselor. The patient denies any suicidal or homicidal ideation. Health screenings are ongoing, with colon cancer screening being up to date and a mammogram scheduled for the next month. Recent lab work revealed a slightly elevated fasting blood sugar, which the patient attributes to eating a lot of candy recently. htn: elevated, will have her follow up with our NN. Health Maintenance The patient's colon screening is up to date. A mammogram is scheduled for the following month. The patient will continue with the low-dose CT scan program. Social History - Tobacco use: The patient continues to smoke. - Family status: The patient's p assed away in July. - Nutritional intake: The patient report s eating a lot of candy recently. Review of Systems - Cardiovascular: Denies chest pain, diz ziness, blurred vision, ORTIZ - Respiratory: Denies shortness of breat h. - Gastrointestinal: Denies abdominal yuki n, hematochezia, constipation, and diarrhea. - Psychiatric: Reports being teary-eyed occasionally after the recent of the patient's . Denies suicidal or homicidal ideation. Physical Exam General: Cooperative, healthy appearing, comfortable, no acute distress and well developed Orientation: Patient oriented x3 Limitations: No limitations Head: Normal to inspection Ears: Hearing grossly normal bilaterally Nose: Normal external nose present Face and sinus: Normal facial exam Eyes: Appearance normal, both eyes and all related structures Neck: Normal visual inspection and Yes full ROM Respiratory: Normal respiratory effort and able to speak in complete sentences. Faint scattered wheezes noted Cardiovascular: Regular rate and rhythm. Normal S1 and S2 GI: Normal to inspection. Soft to palpation and nontender Skin: No rashes or lesions noted Neuro: Patient oriented x3 Extremities: Normal to inspection Results - Labs: Recent labs revealed a slightly elevated fasting blood sugar. Plan 1. Annual Physical Examination The patient presented for a routine physical examination and health maintenance. 2. Tobacco Use Disorder The patient continues to smoke and will continue to participate in the low-dose CT scan program for lung cancer screening. 3. Bereavement The patient lost their in July and reports occasional tearfulness but is doing well and is not in grief counseling. The patient denied suicidal and homicidal ideation. 4. Hyperglycemia Recent lab work showed a slightly elevated fasting blood sugar, which was discussed with the patient. The patient was educated on this finding and attributes it to a recent high intake of candy. 5. HTN will have her take her BP with our NN, in the next week/ 2- weeks. Discussion Notes I discussed the results of the patient's recent lab work, which showed a slightly elevated fasting blood sugar. The patient was educated about this finding and its potential link to the patient's reported high candy consumption. We reviewed the patient's health maintenance status, noting that the colon screening is current, and a mammogram is scheduled for next month. We also confirmed continuation in the low-dose CT scan program due to the patient's smoking history. We discussed the patient's well-being following the loss of their in July, and the patient denied any suicidal or homicidal ideations. Patient Instructions - Continue to participate in the low-dos e CT scan program for lung health. - Keep your mammogram appointment that i s scheduled for next month. - Try to reduce your intake of candy and sugary foods, as your recent blood test showed a slightly high blood sugar level. - If you feel you need support with usama falk, please contact our office to discuss counseling options. PFSH Medical History Hiatal hernia History of hepatitis C Pancytopenia Osteoporosis Dyslipidemia Hyperplastic colon polyp Nicotine dependence, cigarettes, uncomplicated Depression Anxiety Insomnia Surgical History History of colonoscopy History of tonsillectomy History of appendectomy History of tubal ligation History of elbow surgery History of shoulder surgery Family History Father Medical history unknown Mother Medical history unknown Mother Dementia Diabetes Social History Housing: House Alcohol intake: former Patient Tobacco Use Status: Current everyday Tobacco user Tobacco use type: Cigarette Cigarette Packs Per Day: 1 Cigarettes Per Day: 20 Years Smoked: onset 18yo, 1ppd x 50yrs, 50pyh e-Cigarette/Vaping Use: Never Used Second Hand Smoke Exposure: No service: No Current occupational status: disabled Cognitive needs: No Hearing needs: Yes Vision needs: No Questionnaire PHQ-9 Over the last 2 weeks, how often have you been bothered by any of the following problems? 1. Little interest or pleasure in doing things: not at all 2. Feeling down, depressed, or hopeless: not at all 3. Trouble falling or staying asleep, or sleeping too much: not at all 4. Feeling tired or having little energy: not at all 5. Poor appetite or overeating: not at all 6. Feeling bad about yourself - or that you are a failure or have let yourself or your family down: not at all 7. Trouble concentrating on things, such as reading the newspaper or watching television: not at all 8. Moving or speaking so slowly that other people could have noticed. Or the opposite - being so fidgety or restless that you have been moving around a lot more than usual: not at all 9. Thoughts that you would be better off or of hurting yourself in some wa y: not at all Total score: 0 33701 - PHQ-9 Billing: Yes Source: Developed by Drs. Hay Monae, Marilin Alfaro, Dean Strickland and colleagues, with an educational melonie from [employer]. Thrive Questionnaire Date Thrive assessed: 06/24/24 ROSS-7 AMB Questionnaire ROSS-7 Date ROSS - 7 assessed: 04/15/25 Feeling nervous, anxious, or on edge: 1 = Several days Not being able to stop or control worryin = Several days Worrying too much about different things: 2 = More than half the days Trouble relaxin = Not at all Being so restless that it is hard to sit still: 0 = Not at all Becoming easily annoyed or irritable: 1 = Several days Feeling afraid as if something awful might happen: 0 = Not at all Total ROSS-7 score (0-4 normal; 5-9 mild; 10-14 moderate; 15-21 severe): 5 Source: Developed by Drs. Hay Monae, Marilin Alfaro, Dean Strickland and colleagues, with an educational melonie from [employer]. ROSS-7 Assessment Billing ROSS-7 Assessment Tool: ROSS-7 Assessment 50043 Physical exam (Primary Care) Vital Signs: Last Vital Signs Pulse 73 04/15/25 15:13 Resp 16 04/15/25 15:13 BP 158/80 H 04/15/25 15:13 Pulse Ox 95 04/15/25 15:13 Oxygen Delivery Method Room Air 04/15/25 15:13 BMI result Body Mass Index 24.4 Tobacco/Smoking Status: Tobacco use Status Tobacco use date assessed 04/15/25 04/15/25 15:21 Patient Tobacco Use Status Current everyday Tobacco 04/15/25 15:21 Tobacco use type Cigarette 04/15/25 15:21 e-Cigarette/Vaping Use Never Used 04/15/25 15:21 PHQ-9: PHQ-9 Score PHQ-9: Total score 0 04/15/25 15:21 Thrive Assessment: Date of Thrive Assessment Date Thrive assessed 06/24/24 04/15/25 15:21 Coding Level of Care Code Est Pt Level 3 (84606) Est Pt Prev Care >65y(99498) Diagnoses HTN (hypertension) I10 Encounter for routine adult physical exam with abnormal findings Z00.01 Additional Codes ROSS-7 Assessment Billing - ROSS-7 Assessment Tool: ROSS-7 Assessment 36339 ([id number]) PHQ-9 - 02789 - PHQ-9 Billing: Yes ([id number]) Assessment & Plan Assessment & Plan (1) HTN (hypertension): Code(s): I10 - Essential (primary) hypertension Category: Medical (2) Encounter for routine adult physical exam with abnormal findings: Code(s): Z00.01 - Encounter for general adult medical examination with abnormal findings Category: Medical Plan .
--- OUTSIDE RECORDS SUMMARY | 2025-04-15 18:30 | XMS_ITS | Patient Health Record ---
Author Organization [facility] Address [address] [place] [address] Care Team Providers Care Baseball Glove Stuffer Name Role Phone Emmy MCKENNA, Osmany Primary [...] Status Risk Notes Problem Chronic hepatitis C (654982699) Chronic hepatitis C without hepatic coma (B18.2) Active confirmed Problem Dysphagia (55721272) Dysphagia, unspecified type (R13.10) Active confirmed Problem Gastroesophageal reflux disease (160007498) GERD without esophagitis (K21.9) Active confirmed Plan [...] Insured Coverage Start [facility] [address] [address] [place], [place] [id number] ROCHELLE CHINO Self - patient is the insured Medical (General) History Medical History History ICD Code pancytopenia, evaluated by hematology. PTSD back pain colonoscopy in 02/07, hyperplastic polyps , ten-year followup 02/17 Anxiety disorder Surgical History Surgery Date(Month/Year) appendectomy
== END 2025-04-15 16:17 | disposition home or self-care (01) ==
LOC: HO.HMCC 14:43
PROVIDERS: PCP Nurse Practitioner Family; Visit Provider Nurse Practitioner Family
DX: Z00.01 Encounter for general adult medical examination with abnormal findings (principal); I10 Essential (primary) hypertension

== ENCOUNTER → 2025-04-15 14:43 | Outpatient (BNVA) | payer MEDICARE, MEDICAID, SELFPAY | PROVIDERS: PCP Nurse Practitioner Family; Visit Provider Nurse Practitioner Family | DX: Z00.01 Encounter for general adult medical examination with abnormal findings (principal); I10 Essential (primary) hypertension; Z13.31 Encounter for screening for depression; Z13.39 Encounter for screening examination for other mental health and behavioral disorders; F17.200 Nicotine dependence, unspecified, uncomplicated; R73.9 Hyperglycemia, unspecified | CPT/HCPCS: 96127; 99397 ==

== ENCOUNTER 2025-04-29 13:00 | Outpatient (REF) | payer MEDICARE, MEDICAID, SELFPAY ==
--- NOTE | ~2025-04-29 | MM_ITS ---
EXAMINATION: MM SCREENING DIGITAL BREAST TOMOSYNTHESIS, BILATERAL CLINICAL INFORMATION: Screening. Asymptomatic. COMPARISON: Comparison made to multiple prior, most recent April 23, 2024, and most remote October 31, 2016. TECHNIQUE: Digital breast tomosynthesis is performed in mediolateral oblique and craniocaudal views along with computer-aided detection (CAD). Synthesized 2D images are generated from the tomosynthesis. FINDINGS: BREAST COMPOSITION: The breasts are heterogeneously dense, which may obscure small masses. BILATERAL BREASTS: No significant masses, suspicious calcifications or other abnormalities are seen in either breast. MM/MM tomosynthesis screening BI IMPRESSION: BILATERAL BREASTS: Negative, no mammographic evidence of malignancy. Normal interval follow-up is recommended in 12 months. ASSESSMENT: BI-RADS: Category 1: Negative RECOMMENDATION: Routine annual mammography screening. FOLLOW-UP: 1 year F/U This examination should not preclude the clinical evaluation of a suspicious palpable abnormality. This patient's information was entered into a reminder system with a target due date for their next mammogram. Electronically signed by: Yamel Cardoza MD 04/30/2025 06:10 PM RAMYA
== END 2025-04-29 13:01 | disposition home or self-care (01) ==
LOC: HO.MAMMO 13:00
PROVIDERS: PCP Nurse Practitioner Family; Visit Provider Nurse Practitioner Family
DX: M81.0 Age-related osteoporosis without current pathological fracture (principal); F17.210 Nicotine dependence, cigarettes, uncomplicated; Z12.31 Encounter for screening mammogram for malignant neoplasm of breast; Z71.6 Tobacco abuse counseling
CPT/HCPCS: 77063; 77067; 99212

== ENCOUNTER → 2025-04-29 13:15 | Outpatient (BNV) | payer MEDICARE, MEDICAID, SELFPAY | PROVIDERS: PCP Nurse Practitioner Family; Visit Provider Radiology Body Imaging | DX: Z12.31 Encounter for screening mammogram for malignant neoplasm of breast (principal) | CPT/HCPCS: 77063; 77067 ==

== ENCOUNTER 2025-04-29 13:41 | Outpatient (AMB) | payer MEDICARE, MEDICAID, SELFPAY ==
--- NOTE | 2025-04-29 13:44 | MHC.OFFVIS ---
Vital Signs 04/29/25 13:45 Height 5 ft 1.77 in Weight 132 lb 0.91 oz BMI 24.3 BP 142/64 H Blood Pressure Location Lt brachial Position Sitting Pulse 78 Pulse Source Pulse Oximeter Pulse Oximetry (%) 98 Oxygen Delivery Method Room Air Intake Visit Reasons: Osteoporosis Intake Note: Patient present today for age-related Osteoporosis follow up. Marine Engineering Consultant Required: No Accompanied by: Self / Same As Patient Allergies Penicillins Allergy (Mild, Verified 04/29/25 13:45) N/V HPI Comments Details: 68 YO Female with is seen in consultation at the request of PCP for Osteoporosis. First diagnosed in 1 mo ago . Not Received treatment in the past No history of pathologic fracture or ONJ. Has several servings of dietary calcium per day in the form of milk, yogurt . Not Takes Calcium supplement [] mg daily in divided doses. Takes 1000 IU of Vitamin D daily. Denies ever using PPI, anticoagulant, antiepileptic not taking glucocorticoid medication. 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 Menarche at age 14 - nl menses Denies history of Kidney stones: Denies family history of Osteoporosis or hip fracture. UTD on dental cleanings and sees dentist every 6 months. Just had implants No planned upcoming dental work or extractions. Smoked 1 ppd DXA dated 09/14/23:FINDINGS: LEFT FEMUR, NECK: BMD 0.706 g/cm2, Z-score -0.6, T-score -2.4, osteopenia. LEFT FEMUR, TOTAL: BMD 0.755 g/cm2, Z-score -0.5, T-score -2.0, osteopenia. AP SPINE L1-L4: BMD 0.848 g/cm2, Z-score -0.8, T-score -2.8, osteoporosis. IDENTIFIED RISK FACTORS: Early menopause, secondary osteoporosis, tobacco use (current smoker). HISTORY OF FRACTURE: None listed. MEDICATIONS: Vitamin D. MM/XR DEXA axial skeleton IMPRESSION: 1. DIAGNOSIS: Osteoporosis based on the lowest T-score va Labs: Was prescribed alendronate 03/2024. Urine NTX is suppressed Started alendronate but had difficulty tolerating it because of dry throat [facility] Medical History (Reviewed 04/15/25 @ 16:04 by Rob Nelson, EQUIPMENT MONITOR [facility]) Hiatal hernia History of hepatitis C Pancytopenia Osteoporosis Dyslipidemia Hyperplastic colon polyp Nicotine dependence, cigarettes, uncomplicated Depression Anxiety Insomnia Surgical History History of colonoscopy History of tonsillectomy History of appendectomy History of tubal ligation History of elbow surgery History of shoulder surgery Family History Father Medical history unknown Mother Medical history unknown Mother Dementia Diabetes Social History Housing: House Alcohol intake: former Patient Tobacco Use Status: Current everyday Tobacco user Tobacco use type: Cigarette Cigarette Packs Per Day: 1 Cigarettes Per Day: 20 Years Smoked: onset 18yo, 1ppd x 50yrs, 50pyh e-Cigarette/Vaping Use: Never Used Second Hand Smoke Exposure: No service: No Current occupational status: disabled Cognitive needs: No Hearing needs: Yes Vision needs: No Physical Exam Vital Signs: BMI result Body Mass Index 24.3 Assessment & Plan Assessment & Plan (1) Osteoporosis: Comment: (Bone Dexa Lumbar T-score: -2.8 on 09/14/23) Code(s): M81.0 - Age-related osteoporosis without current pathological fracture Category: Medical Qualifiers: Osteoporosis type: unspecified Presence of current pathological fracture: unspecified Qualified Code(s): M81.0 - Age-related osteoporosis without current pathological fracture Plan: This 69-year-old white female with a history of osteoporosis currently on steroids. Complete secondary workup was negative. Was prescribed alendronate in 03/2024. Urine NTX is suppressed. Difficulty tolerating alendronate because of dry throat Plan is to continue the calcium and vitamin-D. We will recheck DEXA bone density in 5 months. If there are significant declines, can consider starting an alternative oral bisphosphonate or could use intravenous bisphosphonate like Reclast. Once again, I counseled the patient on smoking cessation and explained to her relationship with smoking cessation to improvement in bone density but she is not interested in quitting smoking right now Orders: Orders XR DEXA axial skeleton 6 Months M81.0 - Age-related osteoporosis without current pathological fracture Coding Level of Care Code Est Pt Level 3 (92504) Diagnoses Osteoporosis, unspecified osteoporosis type, unspecified pathological fracture presence M81.0 Osteoporosis type: unspecified Presence of current pathological fracture: unspecified
[2025-04-29 13:45] VITALS: BP 142/64; PULSE 78; O2SAT 98; BMI 24.3
--- OUTSIDE RECORDS SUMMARY | 2025-04-29 19:35 | XMS_ITS | Patient Health Record ---
Author Organization [facility] Address [address] [place] [address] Care Team Providers Care Cae Engineer Name Role Phone Emmy MCKENNA, Osmany Primary Care Provider Peter Desouza Jr Unavailable [phone] Sundar Dash Unavailable Unavailable Allergies Allergen [...] Status Risk Notes Problem Chronic hepatitis C ([id number]) Chronic hepatitis C without hepatic coma (B18.2) Active confirmed Problem Dysphagia (56382338) Dysphagia, unspecified type (R13.10) Active confirmed Problem Gastroesophageal reflux disease (541138382) GERD without esophagitis (K21.9) Active confirmed Plan [...] Insured Coverage Start Date Coverage End Date [facility] [address] [address] [place], [place] [id number] ROCHELLE CHINO Self - patient is the insured Medical (General) History Medical History History ICD Code pancytopenia, evaluated by hematology. PTSD back pain colonoscopy in 02/07, hyperplastic polyps , ten-year followup 02/17 Anxiety disorder Surgical History Surgery Date(Month/Year) appendectomy
== END 2025-04-29 13:59 | disposition home or self-care (01) ==
PROVIDERS: PCP Nurse Practitioner Family; Visit Provider Internal Medicine Endocrinology, Diabetes & Metabolism
DX: M81.0 Age-related osteoporosis without current pathological fracture (principal)
CPT/HCPCS: 99213

== ENCOUNTER → 2025-05-02 13:04 | Outpatient (BNVA) | payer MEDICARE, MEDICAID, SELFPAY | PROVIDERS: PCP Nurse Practitioner Family | DX: I10 Essential (primary) hypertension (principal) | CPT/HCPCS: 99211 ==